=== PATIENT | female | born 1965 | race Two or more races ===

== ENCOUNTER 2020-11-14 17:45 | Outpatient (REF) | payer MEDICAID, OTHER, SELFPAY | END 2020-11-14 17:46 | disposition home or self-care (01) | LOC: HO.LAB 17:45 | PROVIDERS: PCP Emergency Medicine; Visit Provider Internal Medicine | DX: Z20.828 Contact with and (suspected) exposure to other viral communicable diseases (principal) | CPT/HCPCS: C9803; U0003 ==

== ENCOUNTER 2021-02-14 16:01 | Outpatient (REF) | payer MEDICARE, MEDICAID, SELFPAY ==
--- NOTE | ~2021-02-14 | XR_ITS ---
EXAMINATION: RIGHT KNEE AND RIGHT HAND. CLINICAL INFORMATION: Right knee pain, COMPARISON: None, TECHNIQUE: 3 views right hand and 4 views right knee, FINDINGS: Right Knee: There is mild reduction in medial and patellofemoral compartment joint space without any bony erosive changes or periarticular spurring. No loose bodies or joint effusion seen. Right Hand: There is minimal reduction in the PIP and DIP joint space. Minimal periarticular spur spurring seen at DIP joints 2nd digit. The MCP joints and the wrist joints are maintained normal. No soft tissue swelling. There is no osteopenia. XR/XR hand RT min 3V IMPRESSION: Minimal early degenerative changes in the patellofemoral and medial compartments. Similar findings are seen in the PIP and DIP joints right hand.
--- NOTE | ~2021-02-14 | XR_ITS ---
EXAMINATION: RIGHT KNEE AND RIGHT HAND. CLINICAL INFORMATION: Right knee pain, COMPARISON: None, TECHNIQUE: 3 views right hand and 4 views right knee, FINDINGS: Right Knee: There is mild reduction in medial and patellofemoral compartment joint space without any bony erosive changes or periarticular spurring. No loose bodies or joint effusion seen. Right Hand: There is minimal reduction in the PIP and DIP joint space. Minimal periarticular spur spurring seen at DIP joints 2nd digit. The MCP joints and the wrist joints are maintained normal. No soft tissue swelling. There is no osteopenia. XR/XR knee RT 4V IMPRESSION: Minimal early degenerative changes in the patellofemoral and medial compartments. Similar findings are seen in the PIP and DIP joints right hand.
== END 2021-02-14 16:02 | disposition home or self-care (01) ==
LOC: HO.XRAY 16:01
PROVIDERS: PCP General Practice; Visit Provider General Practice
DX: M25.561 Pain in right knee (principal); M79.641 Pain in right hand
CPT/HCPCS: 73130; 73564

== ENCOUNTER 2021-04-22 08:57 | Outpatient (REF) | payer MEDICARE, MEDICAID, SELFPAY ==
--- NOTE | ~2021-04-22 | MM_ITS ---
EXAMINATION: MM SCREENING DIGITAL BREAST TOMOSYNTHESIS, BILATERAL CLINICAL INFORMATION: Screening. Asymptomatic. The lifetime risk of breast cancer based on the Tyrer-Cuzick Model is 9.0%. COMPARISON: Mammography: February 20, 2020 and studies dating back to December 01, 2011 TECHNIQUE: Digital breast tomosynthesis is performed in both the craniocaudal and mediolateral oblique views along with computer-aided detection (CAD). Synthesized 2D images are generated from the tomosynthesis. FINDINGS: The breasts are heterogeneously dense, which may obscure small masses (ACR BI-RADS breast composition Category c). There are no new significant masses, abnormal calcifications, or other abnormalities. Stable circumscribed 4 mm densities seen about the anterior lateral aspect of the left breast. MM/MM tomosynthesis screening BI IMPRESSION: There are no significant changes from prior study. ASSESSMENT: BI-RADS 2: Benign RECOMMENDATION: Routine annual mammography screening. This patient's information was entered into a reminder system with a target due date for their next mammogram.
== END 2021-04-22 08:58 | disposition home or self-care (01) ==
LOC: HO.MAMMO 08:57
PROVIDERS: PCP General Practice; Visit Provider General Practice
DX: Z12.31 Encounter for screening mammogram for malignant neoplasm of breast (principal)
CPT/HCPCS: 77063; 77067

== ENCOUNTER 2021-05-29 11:22 | Outpatient (REF) | payer MEDICARE, MEDICAID, SELFPAY | END 2021-05-29 11:23 | disposition home or self-care (01) | LOC: HO.HOSX 11:22 | PROVIDERS: Visit Provider Orthopaedic Surgery | DX: Z13.89 Encounter for screening for other disorder (principal) ==

== ENCOUNTER 2021-06-22 09:17 | Outpatient (REF) | payer MEDICARE, MEDICAID, SELFPAY ==
--- NOTE | ~2021-06-22 | XR_ITS ---
EXAMINATION: BILATERAL AP KNEE. RIGHT KNEE. CLINICAL INFORMATION: Pain right knee. COMPARISON: None TECHNIQUE: AP bilateral knees standing. Right knee 2 views. FINDINGS: AP bilateral knee: There is mild loss of medial and patellofemoral compartment joint space both knees without any bony erosive changes. No loose bodies or soft tissue swelling seen. Right knee: The patellofemoral compartment joint space is normal. No bony erosive changes seen. The soft tissues are normal. No abnormal joint effusion seen. XR/XR knee standing BI IMPRESSION: Mild degenerative changes medial compartment both knees. No visible acute fracture or dislocation seen. Minimal suprapatellar joint effusion seen on the lateral view of the right knee.
--- NOTE | ~2021-06-22 | XR_ITS ---
EXAMINATION: BILATERAL AP KNEE. RIGHT KNEE. CLINICAL INFORMATION: Pain right knee. COMPARISON: None TECHNIQUE: AP bilateral knees standing. Right knee 2 views. FINDINGS: AP bilateral knee: There is mild loss of medial and patellofemoral compartment joint space both knees without any bony erosive changes. No loose bodies or soft tissue swelling seen. Right knee: The patellofemoral compartment joint space is normal. No bony erosive changes seen. The soft tissues are normal. No abnormal joint effusion seen. XR/XR knee RT 2V IMPRESSION: Mild degenerative changes medial compartment both knees. No visible acute fracture or dislocation seen. Minimal suprapatellar joint effusion seen on the lateral view of the right knee.
== END 2021-06-22 09:18 | disposition home or self-care (01) ==
LOC: HO.HOSX 09:17
PROVIDERS: Visit Provider Orthopaedic Surgery
DX: M17.0 Bilateral primary osteoarthritis of knee (principal)
CPT/HCPCS: 20610; 73560; 73565; 99202; 99212; J1100

== ENCOUNTER → 2021-08-11 15:46 | Outpatient (BNVA) | payer MEDICARE, MEDICAID, SELFPAY | PROVIDERS: PCP General Practice; Visit Provider Physician Assistant | DX: M17.11 Unilateral primary osteoarthritis, right knee (principal) | CPT/HCPCS: 99212 ==

== ENCOUNTER → 2022-04-24 15:01 | Outpatient (BNVA) | payer MEDICARE, OTHER, SELFPAY | PROVIDERS: PCP General Practice | DX: N20.0 Calculus of kidney (principal) | CPT/HCPCS: 99202 ==

== ENCOUNTER 2022-05-12 08:19 | Outpatient (REF) | payer MEDICARE, MEDICAID, SELFPAY ==
--- NOTE | ~2022-05-12 | MM_ITS ---
EXAMINATION: MM SCREENING DIGITAL BREAST TOMOSYNTHESIS, BILATERAL CLINICAL INFORMATION: Screening. Asymptomatic. The lifetime risk of breast cancer based on the Tyrer-Cuzick Model is 9%. COMPARISON: Mammography: 04/22/2021, 02/20/2020, 02/14/2019, 1718, 12/22/2016, 10/14/2015, 09/26/2013. TECHNIQUE: Digital breast tomosynthesis is performed in both the craniocaudal and mediolateral oblique views along with computer-aided detection (CAD). Synthesized 2D images are generated from the tomosynthesis. FINDINGS: There are scattered areas of fibroglandular density (ACR BI-RADS breast composition Category b). Left breast parenchymal pattern is similar to prior studies. Neither breast shows abnormal calcifications. The bilateral axilla and skin contours are unremarkable. There is subtle focal asymmetric density under 1 cm posterior central inner right breast versus summation artifact from shifting fibroglandular tissue. Patient will be recalled for additional imaging. MM/MM tomosynthesis screening BI IMPRESSION: Right: -Question of focal asymmetric density posterior central inner right breast. Left: -No mammographic evidence of malignancy. ASSESSMENT: BI-RADS 0: Incomplete - Need Additional Imaging Evaluation RECOMMENDATION: 1. Additional views of the right breast (rolled CC x2, spot MLO). 2. Targeted ultrasound if warranted after review of the additional views. 3. Radiology department staff will contact the patient for additional imaging. This patient's information was entered into a reminder system with a target due date for their next mammogram.
== END 2022-05-12 08:20 | disposition home or self-care (01) ==
LOC: HO.MAMMO 08:19
PROVIDERS: Visit Provider General Practice
DX: Z12.31 Encounter for screening mammogram for malignant neoplasm of breast (principal)
CPT/HCPCS: 77063; 77067

== ENCOUNTER 2022-05-16 13:58 | Outpatient (REF) | payer MEDICARE, MEDICAID, SELFPAY ==
--- NOTE | ~2022-05-16 | MM_ITS ---
EXAMINATION: MM DIAGNOSTIC DIGITAL BREAST TOMOSYNTHESIS, RIGHT US DIAGNOSTIC ULTRASOUND BREAST, RIGHT CLINICAL INFORMATION: Recall from screening for subtle focal asymmetric density posterior central inner right breast versus summation artifact from shifting fibroglandular tissue. TC score 9%. COMPARISON: Mammography: 05/12/2022, 04/22/2021, 04/21/2020 TECHNIQUE: Digital breast tomosynthesis is performed. 2D images are generated from the tomosynthesis. The following views are obtained: Rolled CC x2, spot MLO. Ultrasound right breast is targeted to the inner quadrants 2:00 through 5:00 position. Grayscale imaging and color Doppler are performed without and with harmonics. FINDINGS: There are scattered areas of fibroglandular density (ACR BI-RADS breast composition Category b). There are scattered fibroglandular densities. There is no significant mass or architectural abnormality or definite developing density. Ultrasound demonstrates no cystic or solid mass or focal architectural abnormality. No focal duct ectasia. No skin thickening or edema tracking in soft tissue planes. Results are discussed with the patient at time of visit. As a precaution, short interval six-month follow-up right mammography will be requested to exclude remote possibility of an occult developing density. MM/MM tomosynthesis added views R IMPRESSION: -Additional views show no significant mass or architectural abnormality. -Unremarkable right breast ultrasound. ASSESSMENT: BI-RADS 3: Probably Benign RECOMMENDATION: Diagnostic right mammography in 6 months. This patient's information was entered into a reminder system with a target due date for their next mammogram.
== END 2022-05-16 13:59 | disposition home or self-care (01) ==
LOC: HO.MAMMO 13:58
PROVIDERS: Visit Provider General Practice
DX: R92.2 Inconclusive mammogram (principal)
CPT/HCPCS: 76642; 77061; 77065

== ENCOUNTER → 2022-05-17 15:20 | Outpatient (BNVA) | payer MEDICARE, MEDICAID, SELFPAY | PROVIDERS: PCP General Practice; Visit Provider Physician Assistant | DX: M17.11 Unilateral primary osteoarthritis, right knee (principal) | CPT/HCPCS: 99212 ==

== ENCOUNTER 2022-06-27 16:14 | Outpatient (REF) | payer MEDICARE, MEDICAID, SELFPAY ==
--- NOTE | ~2022-06-27 | US_ITS ---
EXAMINATION: US RETROPERITONEAL LIMITED (RENAL ONLY) CLINICAL INFORMATION: Calculus of kidney. COMPARISON: Renal ultrasound 03/29/2017 and 06/06/2016. CT abdomen and pelvis 03/07/2015. TECHNIQUE: Real-time imaging of the kidneys. FINDINGS: RIGHT KIDNEY: 10.0 x 3.7 x 5.2 cm (SAG x AP x TRV). The kidney is normal in size, contour, and echogenicity. Renal cortical thickness is normal. No calculi or focal parenchymal lesions. No hydronephrosis. LEFT KIDNEY: 10.3 x 5.2 x 5.0 cm (SAG x AP x TRV). The kidney is normal in size, contour, and echogenicity. Renal cortical thickness is normal. There is a 6 mm stone in the midpole. No focal parenchymal lesions or hydronephrosis. US/US renal BI IMPRESSION: Left renal stone.
== END 2022-06-27 16:15 | disposition home or self-care (01) ==
LOC: HO.US 16:14
DX: N20.0 Calculus of kidney (principal)
CPT/HCPCS: 76775

== ENCOUNTER → 2022-07-02 14:21 | Outpatient (BNVA) | payer MEDICARE, MEDICAID, SELFPAY | PROVIDERS: PCP General Practice | DX: N20.0 Calculus of kidney (principal) | CPT/HCPCS: Q3014 ==

== ENCOUNTER 2022-07-17 16:05 | Outpatient (REF) | payer MEDICARE, MEDICAID, SELFPAY ==
[2022-07-18 18:24] LABS: CT PCR NOT DETECTED (Not Detect.); NG PCR NOT DETECTED (Not Detect.)
[2022-07-21 06:12] LABS: HPV mRNA E6/E7 rflx Not Detected (Not Detected)
== END 2022-07-17 16:06 | disposition home or self-care (01) ==
LOC: HO.LAB 16:05
PROVIDERS: Visit Provider Advanced Practice Midwife
DX: Z01.419 Encounter for gynecological examination (general) (routine) without abnormal findings (principal); Z11.51 Encounter for screening for human papillomavirus (HPV)
CPT/HCPCS: 87491; 87591; 87624; 88142

== ENCOUNTER 2022-08-03 16:48 | Outpatient (REF) | payer MEDICARE, SELFPAY ==
[2022-08-03 18:02] LABS: Syphilis Screen Nonreactive (Nonreactive)
[2022-08-06 07:50] LABS: HBc Num1 0.12 S/CO (0.00-0.79); HIV AB/AG Nonreactive (Nonreactive); HIV Num 1 0.06 S/CO (0.00-0.99); Hepatitis B Core Antibody Nonreactive (Nonreactive); ~Hepatitis C Antibody Nonreactive (Nonreactive)
== END 2022-08-03 16:49 | disposition home or self-care (01) ==
LOC: HO.LAB 16:48
PROVIDERS: PCP General Practice; Visit Provider Advanced Practice Midwife
DX: Z11.4 Encounter for screening for human immunodeficiency virus [HIV] (principal); Z20.2 Contact with and (suspected) exposure to infections with a predominantly sexual mode of transmission
CPT/HCPCS: 36415; 86704; 86780; 86803; 87389

== ENCOUNTER → 2022-08-21 14:58 | Outpatient (BNVA) | payer MEDICARE, SELFPAY | PROVIDERS: PCP General Practice; Visit Provider Physician Assistant | DX: M17.11 Unilateral primary osteoarthritis, right knee (principal) | CPT/HCPCS: 20610 ==

== ENCOUNTER 2022-12-25 14:54 | Outpatient (REF) | payer MEDICARE, SELFPAY ==
--- NOTE | ~2022-12-25 | MM_ITS ---
EXAMINATION: MM DIAGNOSTIC DIGITAL BREAST TOMOSYNTHESIS, RIGHT CLINICAL INFORMATION: Short interval six-month follow-up probable benign parenchymal asymmetries posterior central medial right breast. TC score 9%. COMPARISON: Mammography: 05/16/2022, 05/12/2022, 04/22/2021, 02/20/2020, 02/14/2019 (BI-RADS 0), 06/22/2021; ultrasound right breast 05/26/2022 TECHNIQUE: Digital breast tomosynthesis is performed in both the craniocaudal and mediolateral oblique views along with computer-aided detection (CAD). Synthesized 2D images are generated from the tomosynthesis. Additional right MLO view is provided. FINDINGS: There are scattered areas of fibroglandular density (ACR BI-RADS breast composition Category b). Scattered parenchymal asymmetries appears similar to prior exam. There is no developing density and no interval architectural abnormality. No abnormal calcifications. Right breast will be reassessed again at time of annual bilateral mammography, due in 6 months. Results are provided to the patient at time of visit by the technologist. MM/MM tomosynthesis diagnostic RT IMPRESSION: No significant changes from prior exam. ASSESSMENT: BI-RADS 3: Probably Benign RECOMMENDATION: Diagnostic mammography at time of annual bilateral mammography, due in 6 months. This patient's information was entered into a reminder system with a target due date for their next mammogram.
== END 2022-12-25 14:55 | disposition home or self-care (01) ==
LOC: HO.MAMMO 14:54
PROVIDERS: PCP General Practice; Visit Provider General Practice
DX: R92.2 Inconclusive mammogram (principal)
CPT/HCPCS: 77061; 77065

== ENCOUNTER 2023-08-14 08:13 | Outpatient (REF) | payer MEDICARE, SELFPAY ==
[2023-08-14 12:30] LABS: Alanine Aminotransferase 9 U/L (0-31); Albumin Level 4.3 g/dL (3.5-5.0); Alkaline Phosphatase 65 U/L (39-117); Anion Gap 11 (12-20); Aspartate Amino Transferase 16 U/L (5-31); Bilirubin Total 0.8 mg/dL (0.0-1.0); Blood Urea Nitrogen 11 mg/dL (9-16); Calcium 8.9 mg/dL (8.4-10.2); Carbon Dioxide 25 mmol/L (22-29); Chloride 109 mmol/L (96-108); Cholesterol 157 mg/dL (<200); Estimated Glomerular Filt Rate > 60; Glucose Random 95 mg/dL (60-115); HDL Cholesterol 43 mg/dL (>40); LDL Cholesterol Calculated 94 mg/dL (<100); Potassium 3.9 mmol/L (3.3-5.1); Sodium 141 mmol/L (135-145); Total Protein 7.2 g/dL (6.5-8.0); Triglycerides 102 mg/dL (<150)
[2023-08-14 12:53] LABS: TSH reflex Free T4 0.66 uIU/mL (0.32-4.0)
[2023-08-16 01:59] LABS: Prolactin 4.9 ng/mL
== END 2023-08-14 08:14 | disposition home or self-care (01) ==
LOC: HO.HHCL 08:13
PROVIDERS: Visit Provider General Practice
DX: Z00.00 Encounter for general adult medical examination without abnormal findings (principal); N95.0 Postmenopausal bleeding; N95.1 Menopausal and female climacteric states
CPT/HCPCS: 36415; 80053; 80061; 84146; 84443

== ENCOUNTER 2023-08-30 13:17 | Outpatient (REF) | payer OTHER, SELFPAY ==
--- NOTE | ~2023-08-30 | US_ITS ---
EXAMINATION: US PELVIS CLINICAL INFORMATION: Postmenopausal bleeding. COMPARISON: CT abdomen and pelvis 03/07/2015. TECHNIQUE: Ultrasound of the pelvis is performed using both transabdominal and transvaginal transducers along with Doppler. Transvaginal imaging is performed due to inadequate visualization transabdominally. FINDINGS: Uterus: The uterus is retroverted and measures 7.1 x 3.0 x 3.6 cm. The double wall endometrial thickness is 6 mm. The uterus is smooth in contour and has normal myometrial echogenicity. No visible fibroid. Adnexa: Neither ovary is seen. No pelvic free fluid. US/US pelvic and transvaginal IMPRESSION: The endometrial stripe measures 6 mm without discrete mass. In a bleeding postmenopausal patient, endometrial biopsy is recommended.
== END 2023-08-30 13:18 | disposition home or self-care (01) ==
LOC: HO.US 13:17
PROVIDERS: PCP General Practice; Visit Provider General Practice
DX: N95.0 Postmenopausal bleeding (principal)
CPT/HCPCS: 76830; 76856

== ENCOUNTER 2023-09-19 14:44 | Outpatient (REF) | payer OTHER, SELFPAY ==
--- NOTE | ~2023-09-19 | MM_ITS ---
EXAMINATION: MM DIAGNOSTIC DIGITAL BREAST TOMOSYNTHESIS, BILATERAL CLINICAL INFORMATION: 1 year Follow-up parenchymal asymmetries right breast medial aspect posterior one third seen on screening exam CC projection, and mid posterior right MLO screening exam projection. COMPARISON: Mammography: 12/25/2022, 05/16/2022, 05/12/2022, 03/23/2021. Screening breast ultrasound right 05/16/2022. TECHNIQUE: Digital breast tomosynthesis is performed in both the craniocaudal and mediolateral oblique views along with computer-aided detection (CAD). Synthesized 2D images are generated from the tomosynthesis. In addition, 3-D spot compression view in the left CC projection was obtained. FINDINGS: There are scattered areas of fibroglandular density (ACR BI-RADS breast composition Category b). There has been no significant interval change in the parenchymal asymmetries in the right breast which localizes posteromedially on the CC projection, and just inferior to the nipple line on the MLO projection, posterior one third. These have the appearance of overlapping tissue artifact/summation artifact. Previous diagnostic compression views and ultrasound demonstrated no persistent abnormalities. These are probably benign, and 1 year follow-up recommended when the patient is due for one year follow-up screening examination. Otherwise, There are no suspicious masses, suspicious grouped calcifications, or areas of architectural distortion in either breast. The parenchymal pattern is stable from prior exams. MM/MM tomosynthesis diagnostic BI IMPRESSION: There are no significant changes from prior study. Parenchymal asymmetries in the posterior RIGHT breast are stable over one year without change, and consistent with islands of normal glandular tissue. These will be evaluated again in one year on standard CC and MLO views. There is no findings suspicious for malignancy in either breast. ASSESSMENT: BI-RADS BI-RADS 3 - Probably benign finding(s) - 12 month follow-up suggested RECOMMENDATION: 12 month diagnostic follow up Results were provided to the patient at time of visit by the technologist. This patient's information was entered into a reminder system with a target due date for their next mammogram.
== END 2023-09-19 14:45 | disposition home or self-care (01) ==
LOC: HO.MAMMO 14:44
PROVIDERS: PCP General Practice; Visit Provider General Practice
DX: R92.2 Inconclusive mammogram (principal)
CPT/HCPCS: 77062; 77066

== ENCOUNTER → 2023-09-19 15:00 | Outpatient (BNV) | payer OTHER, SELFPAY | PROVIDERS: PCP General Practice; Visit Provider Radiology Diagnostic Radiology | DX: R92.323 Mammographic fibroglandular density, bilateral breasts (principal) | CPT/HCPCS: 77062; 77066 ==

== ENCOUNTER 2023-10-03 13:46 | Outpatient (AMB) | payer OTHER, SELFPAY ==
--- NOTE | 2023-10-03 13:52 | A.OFFVIS_ITS ---
Intake Intake Visit Reasons: OV - Right Knee Durolane Gel Inj Allergies No Known Allergies Allergy (Verified 09/25/23 13:27) pt states no food/medication a Allergy (Unknown, Uncoded 09/25/23 13:27) Unknown HPI OV - Right Knee Durolane Gel Inj HPI Details 58-year-old female, who is Croatian speak ing, presents in the office today for a follow up of right knee pain. The patient had her last durolane injection on 08/21/2022. [facility] Medical History Renal calculi Family History Mother Fatty liver Sister High cholesterol Maternal Grandfather Stroke Brother Psoriasis Social History (System 09/25/23 @ 13:27 by Suze Sanhcez) Household Members Other:: daughter Alcohol intake: never Patient Tobacco Use Status: Never used Tobacco Current occupational status: employed Current occupation: [employer] Sexual orientation: Straight/Heterosexual Gender identity: Female Review of Systems Const All systems reviewed & are unremarkable except as noted in HPI and below Physical Exam Const General: cooperative, healthy appearing and no acute distress Resp Effort & Inspection: normal respiratory effort and able to speak in complete sentences Cardio Rate: regular rate Peripheral pulses: Peripheral pulses 2+ throughout GI Palpation (GI): Soft to palpation Skin Lesions: no lesions Rashes: no rashes Extrem Other: Right knee normal to inspection. No ecchymosis, erythema or edema. Flexion and extension to end range. NVI. Office Procedures Joint Injection/Drain Joint Injection/Drain Primary Site: right knee Prep: site was prepped using aseptic technique, ethochloride spray was applied and injection warnings given Injected: in the joint (Durolane ) Approach Used: anterolateral Procedure: The patient tolerated the procedure well, but had some pain with the injection and there was some relief with the local anesthesia Coding 41209 - Large joint Procedure code (CPT) selection complete Results Reviewed Results Reviewed: 10/03/23 13:43 Hyaluronate Sodium, Stabilized [Durolane] 60 mg INTRAARTIC .STK-MED ONE Assessment & Plan Assessment & Plan (1) Osteoarthritis of right knee: Code(s): M17.11 - Unilateral primary osteoarthritis, right knee Qualifiers: Osteoarthritis type: unspecified Qualified Code(s): M17.11 - Unilateral primary osteoarthritis, right knee Plan Ms. Lucas is a 58-year-old female, who is Croatian speaking, presents in the of [facility] today for a follow up of right knee pain. The patient had her last durolane injection on 08/21/2022. The patient was offered a durolane injection in the right knee. The patient was explained the risk, benefits, and alternatives to receiving this injection. After receiving consent for the injection, the patient had the procedure done while in office today. The patient tolerated the procedure well with no complications. Follow up will be PRN, or sooner if needed. Patient Instructions: Scribed for Lynda Rose PA-C by Arely Eldridge medical doctor, on 10/03/2023 at 1:53 pm, EST. Coding Level of Care Code Procedure Only Diagnoses Osteoarthritis of right knee, unspecified osteoarthritis type M17.11 Osteoarthritis type: unspecified CPT Codes Coding - 25706 Large joint: 41350 - Large joint ([id number])
== END 2023-10-03 13:53 | disposition home or self-care (01) ==
PROVIDERS: PCP General Practice; Visit Provider Physician Assistant
DX: M17.11 Unilateral primary osteoarthritis, right knee (principal)
CPT/HCPCS: 20610

== ENCOUNTER → 2023-10-03 13:46 | Outpatient (BNVA) | payer OTHER, SELFPAY | PROVIDERS: PCP General Practice; Visit Provider Physician Assistant | DX: M17.11 Unilateral primary osteoarthritis, right knee (principal) | CPT/HCPCS: 20610; J7318 ==

== ENCOUNTER 2023-11-12 07:38 | Outpatient (AMB) | payer OTHER, SELFPAY ==
--- NOTE | 2023-11-12 07:44 | MHC.OFFVIS ---
Intake Vital Signs 11/12/23 07:46 Height 5 ft 3 in Weight 144 lb BMI 25.5 BP 110/72 Intake Visit Reasons: Postmenopausal Bleeding/DO not RS [facility] Required: Yes [facility] Language: Nurses Educator Name: Analy WILSON Information Interpreted: non-clinical & clinical Pitching Coach: Pitching Coach Present (Analy WILSON) Accompanied by: Self / Same As Patient Allergies No Known Allergies Allergy (Verified 11/12/23 07:47) pt states no food/medication a Allergy (Unknown, Uncoded 11/12/23 07:47) Unknown Post menopausal: Yes HPI HPI Comments History of Present Illness Details Presenting referred from her PCP regarding an episode of postmenopausal bleeding occurred in 08/24. Pelvic done in 08/30/23 showed endometrial stripe of 6 mm. Last co testing was in 07/23 was negative. Last mammogram was in 09/23 was BI-RADS 3 PFSH Medical History Renal calculi Surgical History Hx of tubal ligation H/O abdominoplasty Family History Mother Fatty liver Sister High cholesterol Maternal Grandfather Stroke Brother Psoriasis Social History Household Members Other:: daughter Housing Other:: daughter Alcohol intake: never Patient Tobacco Use Status: Never used Tobacco Current occupational status: employed Current occupation: [employer] handed Sexual orientation: Straight/Heterosexual Gender identity: Female Female Reproductive History Menstrual Menopause type: natural Total pregnancies: 5 Full term: 2 Number of Living Children: 2 Ab spontaneous: 3 Review of Systems Const All systems reviewed & are unremarkable except as noted in HPI and below Physical Exam General: Yes no CVA tenderness External Female Exam: normal external appearance and normal appearance of the urethra Speculum Exam - Vagina: normal appearance of the vagina, normal palpation, no lesions and no masses Speculum Exam - Cervix: normal appearance of the cervix, normal palpation, no lesions, no masses and nontender Bimanual exam- vagina & uterus: normal bimanual exam, normal palpation, uterine size normal, normal palpation, uterine shape normal, No Cervical tenderness present and non-tender Bimanual Exam- Adnexa, other: normal adnexae Back/Spine/Pelvis Back: no CVA tenderness Office Procedures Endometrial Biopsy Details: The patient was counseled regarding the indication and benefits of endometrial sampling to rule out endometrial pathology including not limited to endometrial hyperplasia or endometrial cancer and others; The alternatives (Either do nothing vs. hysteroscopy D&C) & the risks were discussed with the patient including but not limited: pain, uterine perforation, bleeding, infection, possible injury to bladder, bowel, ureter, possible need for blood transfusion with all its possible risks. The patient verbalized understanding all questions answered and signed consent. The patient was placed into the dorsal lithotomy position; a speculum was inserted in the vagina. Using aseptic technique for the procedure, the cervix was cleansed with Betadine. The anterior lip of the cervix was grasped with a single tooth tenaculum. The uterus was sounded to 7 cm with a 4 mm Pipelle was used. Tissues samples were obtained and placed in formalin, in a patient labeled container and sent to the pathology department. At the end of the procedure, there was minimal bleeding noted The patient tolerated the procedure well and was discharged in good condition with the following instructions: Nothing in the vagina until the bleeding stops. No sex until the bleeding stops, to call if any of the following occurs: fever (>100.4), flu-like symptoms, abdominal pain, heavy bleeding, four smelling vaginal discharge. The patient was instructed to schedule a Follow up appointment in 2 weeks to discuss pathology results of the biopsy and treatment options. This note was generated with a voice recognition program. Some errors may have been overlooked during the review of this note. Sometimes these errors may affect the content or meaning of a given sentence. [id number] Biopsy Assessment & Plan Assessment & Plan (1) Postmenopausal bleeding: Code(s): N95.0 - Postmenopausal bleeding Plan: Discussed with the patient the pelvic ultrasound findings, the endometrial stripe thickenss measured by ultrasound was more than 4mm. The negative predictive value, positive predictive value, Sensitivity, specificity of using ultrasound measurement of endometrial stripe to detecting endometrial pathology including hyperplasia , polyp or cancer were discussed with the patient. Recommended to the patient that the next step is an endometrial sampling via hysteroscopy D&C possible polypectomy versus endometrial biopsy to r/o endometrial pathology including hyperplasia or cancer. All the pros and cons risks and benefits of each approach were discussed with the patient, endometrial biopsy being less invasive, office procedure with less sensitivity and inability diagnose a polyp and removal versus hysteroscopy done under anesthesia more invasive more sensitive to endometrial cancer and possibility of diagnosing and endometrial polyp with the possibility of polypectomy. All questions were answered pt verbalized understanding and decided to proceed with endometrial biopsy. EMB done, see procedure note Orders: Orders AMB Endometrial Biopsy Today N95.0 - Postmenopausal bleeding Coding Level of Care Code New Pt Level 3 (65562) Procedure Only Diagnoses Postmenopausal bleeding N95.0 CPT Codes Endometrial Biopsy - CPT: 90739-Kkflrtnomio Biopsy ([id number])
[2023-11-12 07:46] VITALS: BP 110/72; BMI 25.5
== END 2023-11-12 08:10 | disposition home or self-care (01) ==
PROVIDERS: PCP General Practice; Visit Provider Obstetrics & Gynecology
DX: N95.0 Postmenopausal bleeding (principal)
CPT/HCPCS: 58100; 99203

== ENCOUNTER 2023-11-12 07:39 | Outpatient (REF) | payer OTHER, SELFPAY | END 2023-11-12 07:40 | disposition home or self-care (01) | LOC: HO.LNP 07:39 | PROVIDERS: PCP General Practice; Visit Provider Obstetrics & Gynecology | DX: N95.0 Postmenopausal bleeding (principal) | CPT/HCPCS: 58100; 88305 ==

== ENCOUNTER 2024-01-01 07:33 | Outpatient (AMB) | payer OTHER, SELFPAY ==
--- NOTE | 2024-01-01 07:34 | A.OFFVIS_ITS ---
Intake Vital Signs 01/01/24 07:36 Height 5 ft 3 in Weight 143 lb 4.807 oz BMI 25.4 BP 112/66 Intake Visit Reasons: EMB follow up Mold Release Worker Required: Yes Mold Release Worker Language: Building Performance Specialist Name: Analy WILSON Information Interpreted: non-clinical & clinical Accompanied by: Self / Same As Patient Allergies No Known Allergies Allergy (Verified 01/01/24 07:36) pt states no food/medication a Allergy (Unknown, Uncoded 01/01/24 07:36) Unknown Post menopausal: Yes HPI HPI Comments History of Present Illness Details The patient is presenting after endometrial biopsy. The patient has no complaints, no vaginal bleeding, no feverishness chills or abdominal pain. Endometrial biopsy pathology showed following: Endometrium, biopsy: Superficial strips of benign endometrium and small fragment of atrophic squamous epithelium; abundant blood; no atypia identified PFSH Medical History Renal calculi Surgical History Hx of tubal ligation H/O abdominoplasty Family History Mother Fatty liver Sister High cholesterol Maternal Grandfather Stroke Brother Psoriasis Social History Household Members Other:: daughter Housing Other:: daughter Alcohol intake: never Patient Tobacco Use Status: Never used Tobacco Current occupational status: employed Current occupation: [employer] handed Sexual orientation: Straight/Heterosexual Gender identity: Female Review of Systems Const All systems reviewed & are unremarkable except as noted in HPI and below Reports as per HPI and Reports no additional complaints GI Reports no additional complaints Reports no additional complaints Physical Exam Vital Signs: Last Vital Signs BP 112/66 01/01/24 07:36 BMI result Body Mass Index 25.4 Assessment & Plan Assessment & Plan (1) Postmenopausal bleeding: Code(s): N95.0 - Postmenopausal bleeding Plan: Discussed with the patient the results of the endometrial biopsy showing inactive endometrium. Discussed with the patient the sensitivity, specificity, positive and negative predictive value, of endometrial biopsy in detecting endometrial pathology including but not limited to endometrial hyperplasia, cancer and other pathology; instructed the patient to call in case is vaginal bleeding bleeding recurs, the next step will be to proceed with a diagnostic hysteroscopy/D&C for further endometrial sampling evaluation to rule out endometrial pathology. All questions answered and the patient verbalized understanding and agreed with the plan. Coding Level of Care Code Est Pt Level 3 (42244) Diagnoses Postmenopausal bleeding N95.0
[2024-01-01 07:36] VITALS: BP 112/66; BMI 25.4
== END 2024-01-01 07:46 | disposition home or self-care (01) ==
LOC: HO.HWS 07:33
PROVIDERS: PCP General Practice; Visit Provider Obstetrics & Gynecology
DX: N95.0 Postmenopausal bleeding (principal)
CPT/HCPCS: 99213

== ENCOUNTER → 2024-01-01 07:33 | Outpatient (BNVA) | payer OTHER, SELFPAY | PROVIDERS: PCP General Practice; Visit Provider Obstetrics & Gynecology ==

== ENCOUNTER 2024-10-01 15:37 | Outpatient (AMB) | payer OTHER, SELFPAY ==
--- NOTE | 2024-10-01 15:41 | A.OFFVIS_ITS ---
Vital Signs 10/01/24 15:43 Height 5 ft 3 in Weight 141 lb 4 oz BMI 25.0 Intake Visit Reasons: annual/DO NOT RS Sole Dyer Required: Yes Information Interpreted: non-clinical & clinical Life Enrichment Specialist: Life Enrichment Specialist Present Allergies No Known Allergies Allergy (Verified 01/01/24 07:36) pt states no food/medication a Allergy (Unknown, Uncoded 01/01/24 07:36) Unknown HPI Comments Details: Presenting for annual exam. No complaints. Last Pap/HPV was negative in 07/23 Last Mammogram was BI-RADS 3 in 09/23, the recommendation was to repeat in 12 month Last Colonoscopy was 7 years ago, the recommendation was to repeat in 10 years according to the patient [facility] Medical History Renal calculi Surgical History Hx of tubal ligation H/O abdominoplasty Family History Mother Fatty liver Sister High cholesterol Maternal Grandfather Stroke Brother Psoriasis Social History Household Members Other:: daughter Housing Other:: daughter Alcohol intake: never Patient Tobacco Use Status: Never used Tobacco Current occupational status: employed Current occupation: [employer] handed Sexual orientation: Straight/Heterosexual Gender identity: Female Female Reproductive History Menstrual Menopause type: natural Total pregnancies: 2 Full term: 2 Number of Living Children: 2 Date of last pap smear: 07/18/22 History of abnormal pap smear: No Date of Mammogram: 09/19/23 Review of Systems Const All systems reviewed & are unremarkable except as noted in HPI and below Card Reports as per HPI Resp Reports as per HPI GI Reports as per HPI and Reports no additional complaints Reports as per HPI Physical Exam Const General: cooperative, healthy appearing and comfortable Chest Chest palpation & inspection: normal inspection of the chest and normal palpation of entire chest wall Breast/axilla inspection: normal inspection of the breasts and normal inspection of the axillae Breast/axilla palpation: normal palpation of the breasts, normal palpation of the axillae and no axillary lymphadenopathy Resp Effort & Inspection: normal respiratory effort Auscultation: clear to auscultation bilaterally Percussion: percussion normal Cardio Palpation: normal PMI Rate: regular rate Rhythm: regular rhythm Heart sounds: no murmurs and no rubs Peripheral pulses: Peripheral pulses 2+ throughout GI Inspection: Yes normal to inspection Palpation (GI): Soft to palpation, nontender, no guarding, not rigid and No hepatosplenomegaly present Percussion: Yes normal to percussion Auscultation: normal bowel sounds Rectal Exam - Female: deferred General: Yes bladder normal to palpation External Female Exam: No lesion Speculum Exam - Vagina: normal appearance of the vagina, normal palpation, normal vaginal discharge and not erythematous Speculum Exam - Cervix: normal appearance of the cervix and normal palpation Bimanual exam- vagina & uterus: normal bimanual exam, normal palpation, uterine size normal, bladder normal to palpation, consistency normal and normal palpation Bimanual Exam- Adnexa, other: normal adnexae, no masses and no tenderness Assessment & Plan Assessment & Plan (1) Well woman exam: Code(s): Z01.419 - Encounter for gynecological examination (general) (routine) without abnormal findings Category: Medical Plan: Co testing done. Counseled the patient about the recommended dietary allowance of 1200 mg of Calcium & 600 IU of vitamin D. Mammogram scheduled in few weeks. The patient was instructed to perform monthly self-breast exams and schedule annual exam in a year. All questions answered and the patient verbalized understanding. Coding Level of Care Code Est Pt Prev Care 40-64y(96007) Diagnoses Well woman exam Z01.419
[2024-10-01 15:43] VITALS: BMI 25.0
== END 2024-10-01 16:05 | disposition home or self-care (01) ==
LOC: HO.HWS 15:37
PROVIDERS: PCP General Practice; Visit Provider Obstetrics & Gynecology
DX: Z01.419 Encounter for gynecological examination (general) (routine) without abnormal findings (principal)
CPT/HCPCS: 99396

== ENCOUNTER → 2024-10-01 15:37 | Outpatient (BNVA) | payer OTHER, SELFPAY | PROVIDERS: PCP General Practice; Visit Provider Obstetrics & Gynecology ==

== ENCOUNTER 2024-12-18 12:58 | Outpatient (REF) | payer OTHER, SELFPAY ==
--- NOTE | ~2024-12-18 | MM_ITS ---
EXAMINATION: MM DIAGNOSTIC DIGITAL BREAST TOMOSYNTHESIS, BILATERAL CLINICAL INFORMATION: Follow-up for right breast focal asymmetry without prior sonographic correlate. COMPARISON: Mammography: Comparison is made with relevant prior exams. TECHNIQUE: Digital breast mammography with tomosynthesis is performed in both the craniocaudal and mediolateral oblique views along with computer-aided detection (CAD). FINDINGS: There are scattered areas of fibroglandular density (ACR BI-RADS breast composition Category b). Left: There are no significant masses, abnormal calcifications, or other abnormalities. Right: The previously seen focal asymmetry in the central inner right breast posterior depth is not significantly changed on prior mammograms dating back for 2 years and therefore benign. No prior sonographic correlate was seen. No suspicious masses calcifications or other abnormal findings. Results are provided to the patient at time of visit by the technologist. MM/MM tomosynthesis diagnostic BI IMPRESSION: Left: Negative. Right: Benign. ASSESSMENT: BI-RADS BI-RADS 2 - Benign Findings RECOMMENDATION: 1 year F/U This patient's information was entered into a reminder system with a target due date for their next mammogram. Electronically signed by: Yumiko De La Rosa DO 12/18/2024 01:44 PM [facility] [place]
== END 2024-12-18 12:59 | disposition home or self-care (01) ==
LOC: HO.MAMMO 12:58
PROVIDERS: PCP General Practice; Visit Provider General Practice
DX: R92.2 Inconclusive mammogram (principal)
CPT/HCPCS: 77062; 77066

== ENCOUNTER → 2024-12-18 13:00 | Outpatient (BNV) | payer OTHER, SELFPAY | PROVIDERS: PCP General Practice; Visit Provider Internal Medicine | DX: N64.89 Other specified disorders of breast (principal) | CPT/HCPCS: 77062; 77066 ==

== ENCOUNTER 2025-01-25 14:10 | Outpatient (REF) | payer OTHER, SELFPAY ==
--- OUTSIDE RECORDS SUMMARY | 2025-01-25 16:18 | XMS_ITS | Encounter Summary ---
Author Organization [employer] Address [address] [place] [address] Care Team Providers Care Vending Machine Repairer Name Role Phone Orly Henry MD Primary Care Provider [phone] Reason for Visit * Reason Comments Annual Exam Encounter Details Date Type Department Care Team (Latest Contact Info) Description 01/25/2025 1:30 PM EST Office Visit [facility] [address], [place] [phone] Orly Henry MD [address] [place], [place] [phone] Localized osteoarthritis of right knee (Primary Dx); Dietary counseling; Exercise counseling; Overweight; Postmenopausal symptoms; Rash Social History Tobacco Use Types Packs/Day Years Used Date Smoking Tobacco: Never Smokeless Tobacco: Never Tobacco Cessation:Counseling Given: Not Answered Alcohol Use Standard Drinks/Week Comments Never 0 (1 standard drink = 0.6 oz pur e alcohol) Depression Answer Date Recorded Patient Health Questionnaire-9 Score 0 01/25/2025 Patient Health Questionnaire-9 Score 0 01/25/2025 Last PHQ-9: Questionnaire Data Not on file 0 01/25/2025 Housing Stability Answer Date Recorded What is your housing situation today? I have sebastian menendez 09/21/[address] you li ve. Do you have problems with any of the following? None of the above 09/21/2024 Food Insecurity Answer Date Recorded Within the past 12 months, y ou worried that your food would run out before you got money to buy more: Never True 09/21/2024 Within the past 12 months,th e food you bought just didn't last and you didn't have enough money to get more: Never True Transportation Answer Date Recorded In the past 12 months, has l ack of transportation kept you from medical appts, meetings, work or from getting things needed for daily living? No 09/21/2024 Utilities Answer Date Recorded In the past 12 months, has t he electric, gas, oil or water company threatened to shut off services in your home? No 09/21/2024 Depression Answer Date Recorded Patient Health Questionnaire-2 Score 0 01/25/2025 Internet Access Answer Date Recorded Internet Access Q1 Yes 09/21/2024 Internet Access Q2 Not on file 09/21/2024 Comments Unknown Sex and Gender Information Value Date Recorded Sex Assigned at Female 10/01/2022 10:16 AM EDT Legal Sex Female 10:16 AM EDT Gender Identity Female 10/01/2022 10:16 AM EDT Sexual Orientation Straight 10/01/2022 10 :16 AM EDT documented as of this encounter Last Filed Vital Signs Vital Sign Reading Time Taken Comments Blood Pressure 109/69 01/25/2025 1:41 PM EST Pulse 73 01/25/2025 1:41 PM EST Temperature 36.7 ??C (98 ??F) 01/25/2025 1:41 PM EST Respiratory Rate 17 01/25/2025 1:41 PM EST Oxygen Saturation 100% 01/25/2025 1:41 PM EST Inhaled Oxygen Concentration - - Weight 67.4 kg (148 lb 9.6 oz) 01/25/2025 1:41 P M EST Height 157.5 cm (5' 2 ) 01/25/2025 1:41 PM EST Body Mass Index 27.18 01/25/2025 1:41 PM EST documented in this encounter Progress Notes * Orly Henry MD - 01/25/2025 1:30 PM EST SUBJECTIVE: Roro Lucas is a 59 y.o. year old female who presents for chronic disease management/PE. Deniesrecent illness, ER visit, or hospitalization. Acute Concerns: Sun spots on her hands Chronic Conditions: (with A/P) Pain/swelling in hands secondary to OA Has gloves/splint at home for when this happens She had trigger finger in her L thumb last year, resolved with steroid injection. Received a repeatinjection and it was very helpful. OA R knee x 4 years got Synvisc injection last year, helpful but does not want to keep getting injection Would like to trial glucosamine/chondroitin, ordered today Menopause, occurred naturally at age 48: Had breakthrough bleeding on HRT (Combipatch, uterus intact), so stopped it after 5 years of use Looking for alternative remedies currently, will read about Black cohosh Also, interested in trying Paxil, script sent today Mammo- December 2024, Birads 1 Colonscopy- done in 2019, repeat 10 years Pap- 10/01/24 [facility] showed inactive endometrium [facility], appt in Nov 2022 Imms- declines Patient Active Problem List Diagnosis Hand pain Menopausal flushing Patellofemoral stress syndrome Localized osteoarthritis of right knee Annual physical exam Postmenopausal bleeding Postmenopausal symptoms Retained root of tooth after dental injury Hypercementosis Dental plaque Missing teeth, acquired History reviewed. No pertinent surgical history. No family history on file. Social History Social History Narrative Works at [employer] No tobacco/EtOH Review of Systems Constitutional: Negative. Respiratory: Negative. Cardiovascular: Negative. Gastrointestinal: Negative. Musculoskeletal: Positive for arthralgias. OBJECTIVE: Vitals: 01/25/25 1341 BP: 109/69 BP Location: Left arm Patient Position: Sitting BP Cuff Size: Adult Pulse: 73 Resp: 17 Temp: 98 ??F (36.7 ??C) TempSrc: Temporal SpO2: 100% Weight: 148 lb 9.6 oz (67.4 kg) Height: 5' 2 (1.575 m) Physical Exam Vitals and nursing note reviewed. Constitutional: Appearance: Normal appearance. HENT: Head: Normocephalic and atraumatic. Cardiovascular: Rate and Rhythm: Normal rate and regular rhythm. Pulses: Normal pulses. Heart sounds: Normal heart sounds. Pulmonary: Effort: Pulmonary effort is normal. Breath sounds: Normal breath sounds. Musculoskeletal: General: Tenderness present. Comments: R knee anterior tenderness Skin: General: Skin is warm and dry. Findings: Rash present. Comments: Scattered itchy hyperpigmented lesions on hands Neurological: General: No focal deficit present. Mental Status: She is alert and oriented to person, place, and time. Psychiatric: Mood and Affect: Mood normal. Behavior: Behavior normal. ASSESSMENT/PLAN Problem List Items Addressed This Visit Localized osteoarthritis of right knee - Primary Relevant Medications Glucosamine-Chondroitin 250-200 MG capsule calcium carbonate (Calcium 600) 600 MG tablet Postmenopausal symptoms Relevant Medications PARoxetine (Paxil) 10 MG tablet Other Visit Diagnoses Dietary counseling eat whole foods, mostly homemade Exercise counseling walk 20-30 minutes daily Overweight Relevant Orders Lipid Panel, Standard TSH W/Reflex to FT4 Comprehensive Metabolic Panel Hemoglobin A1c Rash Relevant Medications triamcinolone (Kenalog) 0.1 % cream Follow Up: 6-12 months or sooner prn No Known Allergies Current Outpatient Medications: calcium carbonate (Calcium 600) 600 MG tablet, Take 1 tablet (600 mg) by mouth Once per day., Disp:90 tablet, Rfl: 3 Glucosamine-Chondroitin 250-200 MG capsule, Take 1 tablet by mouth Once per day., Disp: 90 capsule,Rfl: 3 PARoxetine (Paxil) 10 MG tablet, Take 1 tablet (10 mg) by mouth in the evening., Disp: 30 tablet, Rfl: 11 triamcinolone (Kenalog) 0.1 % cream, Apply topically if needed at bedtime for rash., Disp: 45 g, Rfl: 2 Kittitian Translation: Patient is bilingual and declines translation services documented in this encounter Plan of Treatment Upcoming Encounters Date Type Department Care Team (Late st Contact Info) Description 02/12/2025 3:00 PM EDT Office Visit [facility] [address] [place] [address] Hoang Haywood, DMD [address] [place] [address] 07/30/2025 3:00 PM EDT Office Visit [facility] [address] [place] [address] Mary Byers [address] [place] [address] Scheduled Orders Name Type Priority Associated Diagnoses Orde r Schedule Lipid Panel, Standard Lab Routine Overweight Expected: 01/25/2025 (Approximate), Expires: 01/25/2026 TSH W/Reflex to FT4 Lab Routine Overweight Expected: 01/25/2025 (Approximate), Expires: 01/25/2026 Comprehensive Metabolic Panel Lab Routine Overweight Expected: 01/25/2025 (Approximate), Expires: 01/25/2026 Hemoglobin A1c Lab Routine Overweight Expected: 01/25/2025 (Approximate), Expires: 01/25/2026 documented as of this encounter Visit Diagnoses Diagnosis Localized osteoarthritis of right knee- Primary Dietary counseling Dietary surveillance and counseling Exercise counseling Overweight Postmenopausal symptoms Rash Rash and other nonspecific skin eruption documented in this encounter Additional Health Concerns Assessment Noted Time PHQ-9 Depression Total Score: 0 01/25/20 25 1:42 PM EST documented as of this encounter Care Teams Vending Machine Repairer Relationship Specialty Start Date End Date Orly Henry MD [address] [place] [address] PCP - General Family Medicine 11/10/20 documented as of this encounter
--- OUTSIDE RECORDS SUMMARY | 2025-01-25 16:18 | XMS_ITS | Encounter Summary ---
Author Organization [employer] Address [address] [place] [address] Care Team Providers Care Magnetic Tape Winder Name Role Phone Orly Henry MD Primary Care Provider [phone] Reason for Visit * Reason Onset Date Comments rs appt 09/17/2023 Encounter Details Date Type Department Care Team ([facility] st Contact Info) Description 09/17/[address] [facility] [address] [place] [address] Hoang Haywood, ZENA [address] [place] [address] rs appt Social History Tobacco Use Types Packs/Day Years Used Date Smoking Tobacco: Never Smokeless Tobacco: Never Alcohol Use Standard Drinks/Week Comments Never 0 (1 standard drink = 0.6 oz pur e alcohol) Depression Answer Date Recorded Patient Health Questionnaire-9 Score 0 08/12/2023 Housing Stability Answer Date Recorded What is your housing situation today? I have sebastian menendez 09/17/[address] you li ve. Do you have problems with any of the following? None of the above 09/17/2023 Food Insecurity Answer Date Recorded Within the past 12 months, y ou worried that your food would run out before you got money to buy more: Never True 09/17/2023 Within the past 12 months,th e food you bought just didn't last and you didn't have enough money to get more: Never True Transportation Answer Date Recorded In the past 12 months, has l ack of transportation kept you from medical appts, meetings, work or from getting things needed for daily living? No 09/17/2023 Utilities Answer Date Recorded In the past 12 months, has t he electric, gas, oil or water company threatened to shut off services in your home? No 09/17/2023 Depression Answer Date Recorded Patient Health Questionnaire-2 Score 0 08/12/2023 Comments Unknown Sex and Gender Information Value Date Recorded Sex Assigned at Female 10/01/2022 10:16 AM EDT Legal Sex Female 10:16 AM EDT Gender Identity Female 10/01/2022 10:16 AM EDT Sexual Orientation Straight 10/01/2022 10 :16 AM EDT documented as of this encounter Miscellaneous Notes * Telephone Encounter - Sheryl Rondon - 09/17/2023 1:05 PM EDT Patient cancelled appt for 09/18 an needs new date. Dental department closed from 1-2 and unable tocontact to reschedule new appt. Pls reach out to patient for rescheduling DR documented in this encounter Plan of Treatment Upcoming Encounters Date Type Department Care Team (Late st Contact Info) Description 02/12/2025 3:00 PM EDT Office Visit [facility] [address] [place] [address] Hoang Haywood, ZENA [address] [place] [address] 07/30/2025 3:00 PM EDT Office Visit [facility] [address] [place] [address] Zeeshan, Mary [address] [place] [address] documented as of this encounter Visit Diagnoses Not on filedocumented in this encounter Additional Health Concerns Assessment Noted Time PHQ-9 Depression Total Score: 0 08/12/20 23 1:18 PM EDT documented as of this encounter Care Teams Magnetic Tape Winder Relationship Specialty Start Date End Date Orly Henry MD [address] [place] [address] PCP - General Family Medicine 11/10/20 documented as of this encounter
--- OUTSIDE RECORDS SUMMARY | 2025-01-25 16:18 | XMS_ITS | Clinical Summary ---
Author Organization [employer] Address [address] [facility] 7t [place] [address] Care Team Providers Care Sergeant Missile Crewman Name Role Phone Orly Henry MD Primary Care Provider Allergies No known active allergies Medications PARoxetine (Paxil) 10 MG tabletIndications :Postmenopausal symptoms Take 1 tablet (10 mg) by mouth in the evening. 30 tablet 11 025 2025 Active Glucosamine-Chond roitin 250-200 MG capsuleIndication s:Localized osteoarthritis of right knee Take 1 tablet by mouth Once per day. 90 capsule 3 025 Active calcium carbonate (Calcium 600) 600 MG tabletIndications :Localized osteoarthritis of right knee Take 1 tablet (600 mg) by mouth Once per day. 90 tablet 3 025 2025 Active triamcinolone (Kenalog) 0.1 % creamIndications: Rash Apply topically if needed at bedtime for rash. 45 g 2 025 Active Sodium Fluoride 1.1 % gel brush on teeth two times a day ( am and before bedtime) 020 2024 Discontinued(T herapy completed) celecoxib (CeleBREX) 200 MG capsule Take 1 capsule by mouth every 12 (twelve) hours. 2024 Discontinued(T herapy completed) chlorhexidine (Peridex) 0.12 % solution Place 15 mL into mouth between cheek and gum every 12 (twelve) hours. 022 2024 Discontinued Diclofenac Sodium 1 % gel Apply 1 g topically every 12 (twelve) hours. 021 2024 Discontinued(T herapy completed) ibuprofen 600 MG tablet Take 1 tablet by mouth every 8 (eight) hours. 022 2024 Discontinued(T herapy completed) Calcium Carb-Cholecalcife rol 600-10 MG-MCG tablet TAKE 1 TABLET BY MOUTH EVERY DAY 90 tablet 3 023 2024 Discontinued(D ose adjustment) EPINEPHrine (Epipen) 0.3 MG/0.3ML injection syringe Inject 0.3 mL (0.3 mg) as directed 1 (one) time if needed for anaphylaxis for up to 1 dose. Inject into upper leg. Call 911 after use. 1 each 1 024 2024 Discontinued(T herapy completed) acetaminophen (Tylenol) 500 MG tablet Take 1 tablet (500 mg) by mouth every 6 (six) hours if needed for mild pain for up to 20 doses. 20 tablet 024 2024 Discontinued(T herapy completed) ibuprofen 600 MG tablet Take 1 tablet (600 mg) by mouth every 6 (six) hours if needed for mild pain for up to 20 doses. 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 The etiology of the bleeding could be related to the patch itself, but structural/hormonal/cancerous causes must be investigated as well To stop the patch, TSH and prolactin ordered, pelvic US to evaluate uterine structure and endometrial lining - has mammo scheduled Sep 2023 Pap 2022 NILM/HPV neg Postmenopausal symptoms 08/14/2023 Assessment & Plan (08/14/2023 9:30 AM EDT): Symptoms managed with Combipatch, now reporting breakthrough bleeding Hand pain 08/12/2023 Menopausal flushing 08/12/2023 Patellofemoral stress syndrome 08/12/2023 Encounters Date Type Department Care Team Description 01/25/2025 1:30 PM EST Office Visit [facility] MEDICINE [address] [place] [address] Orly Henry MD Localized osteoarthritis of right knee (Primary Dx); Dietary counseling; Exercise counseling; Overweight; Postmenopausal symptoms; Rash 01/25/2025 Travel 01/22/2025 3:00 PM EST Office Visit [facility] ADULT DENTAL [address] [place] [address] Mary Byers Dental plaque (Primary Dx) 01/11/2025 Patient Outreach [facility] MEDICINE [address] [place] [address] Orly Henry MD Pre-visit Planning ((Unable to reach for PVP screening, LVM)) 12/18/2024 Orders Only [facility] MEDICINE [address] [place] [address] Orly Henry MD 11/24/2024 Patient Outreach [address] [address] Orly Henry MD Pre-visit Planning (SDOH screening completed on 09/24/2024) from Last 3 Months Immunizations Name Administration Dates Next Due Influenza injectable quadriv alent IIV4 with preservative 09/03/2018,12/11/2017,10/14/2015 Influenza injectable quadriv alent preservative free 08/27/2022,11/22/2021,08/12/2020 Influenza, IIV3, injectable 08/16/2014 Influenza, Split (incl. alissa fied surface antigen) 09/04/2013 Pfizer Covid-19 Vaccine 12+ 12/05/2021,,03/30/2021 Tdap 10/14/2015 Zoster, Recombinant 01/18/2021,11/08/2020 Social History Tobacco Use Types Packs/Day Years [...] Orientation Straight 10/01/2022 10 :16 AM EDT Last Filed Vital Signs Vital Sign Reading [...] Mass Index 27.18 01/25/2025 1:41 PM EST Plan of Treatment Upcoming Encounters Date Type Department Care Team (Late st Contact Info) Description 02/12/2025 3:00 PM EDT Office Visit [facility] ADULT DENTAL [address] [place] [address] ChastityHoang, ZENA [address] [place] [address] 07/30/2025 3:00 PM EDT Office Visit [facility] ADULT DENTAL [address] [place] [address] Mary Byers [address] [place] [address] Health Maintenance Due Date Last Done Comments CT Colonography 1967 FIT DNA/Cologuard 1967 FIT 1967 FOBT 1967 Sigmoidoscopy 1967 Alcohol/Substance Use Screening 1979 Hepatitis B Vaccines (1 of 3 - 19+ 3-dose series) 1986 Pneumococcal Vaccine: 50+ Years (1 of 1 - PCV) 2017 Pap Smear 03/13/2024 03/13/2021 COVID-19 Vaccine ( season) 2024 12/05/2021, 04/20/2021, 03/30/2021 Influenza Vaccine (#1) 2024 , 11/22/2021, 08/12/2020, Additional history exists Dental Oral Exam 07/23/2025 01/22/2025, , 07/14/2024 Dental Prophylaxis 07/23/2025 01/22/2025, 07/14/2024 SDOH Screening 09/21/2025 09/21/2024 DTaP/Tdap/Td Vaccines (2 - Td or Tdap) 10/14/2025 10/14/2015 Mammogram 12/18/2025 12/18/2024, 09/01, 12/25/2022, Additional history exists Dental X-Ray: Bitewings 01/23/2026 01/22/20, 07/14/2024, 08/23/2022 Depression Screening 01/25/2026 01/25/2025, 01/25/20 Tobacco Screening 01/25/2026 01/25/2025 Dental X-Ray: Full Mouth 07/15/2027 07/14/2024, 07/08/2019 Cervical Cancer Screening 07/17/2027 HPV/Cotest 07/17/2027 07/17/2022, 07/02, 03/13/2021 Colonoscopy 11/04/2028 11/04/2018 Colorectal Cancer Screening 11/04/2028 RSV Patients and Patients Aged 60 years or older (1 - 1-dose 75+ series) 2042 Zoster Vaccines Completed 01/18/2021, 11/08/2020 HIV Screening Completed 08/03/2022 Hepatitis C Screening Completed 08/03/2022 HIB Vaccines Aged Out No longer eligi ble based on patient's age to complete this topic HPV Vaccines Aged Out No longer eligi ble based on patient's age to complete this topic Hepatitis A Vaccines Aged Out No long er eligible based on patient's age to complete this topic IPV Vaccines Aged Out No longer eligi ble based on patient's age to complete this topic Meningococcal Vaccine Aged Out No lenka alvaro eligible based on patient's age to complete this topic RSV under 20 months Aged Out No longe r eligible based on patient's age to complete this topic Rotavirus Vaccines Aged Out No longer eligible based on patient's age to complete this topic Procedures Procedure Name Priority Date/Time Associated Diagnosis Comments PERIODIC ORAL EVALUATION - ESTABLISHED PATIENT Routine 01/22/2025 3:00 PM EST INTRAORAL - PERIAPICAL EACH ADDITIONAL RADIOGRAPHIC IMAGE Routine 01/22/2025 3:00 PM EST Dental plaque INTRAORAL - PERIAPICAL EACH ADDITIONAL RADIOGRAPHIC IMAGE Routine 01/22/2025 3:00 PM EST Dental plaque BITEWINGS - 4 RADIOGRAPHIC IMAGES Routine 01/22/2025 3:00 PM EST Dental plaque INTRAORAL - PERIAPICAL FIRST RADIOGRAPHIC IMAGE Routine 01/22/2025 3:00 PM EST Dental plaque ORAL HYGIENE INSTRUCTIONS Routine 01/22/2025 3:00 PM EST Dental plaque CASE PRESENTATION, DETAILED AND EXTENSIVE TREATMENT PLANNING Routine 01/22/2025 3:00 PM EST Dental plaque PROPHYLAXIS - ADULT Routine 01/22/2025 3 :00 PM EST Dental plaque BI MAMMOGRAM DIAGNOSTIC TOMOSYNTHESIS BILATERAL Routine 12/18/2024 1:05 PM EST INTRAORAL - COMPLETE SERIES OF RADIOGRAPHIC IMAGES Routine 07/14/2024 3:00 PM EDT Dental plaque ZZZ HISTORICAL HEPATITIS C ANTIBODY Routine 08/03/2022 4:56 PM EDT ZZZ HISTORICAL HPV E6/E7 RFLX PHILIPP 16 18/45 Routine 07/17/2022 4:05 PM EDT THINPREP PAP Routine 03/13/2021 3:49 PM EDT HM COLONOSCOPY Routine 11/04/2018 from Last 3 Months or Most Recently Relevant to Health Maintenance Results * BI Mammogram Diagnostic Tomosynthesis Bilateral (12/18/2024 1:05 PM EST) Anatomical Region Laterality Modality Breast Bilateral Mammography 12/18/2024 1:05 PM EST Narrative 12/18/2024 1:47 PM EST ? [facility] [place] ? [address] ?[place] [address] ? Mammography Report ? Signed ? Patient: Lucas,Roro N ?MR#: [id number] ?? [id number] ? : 1965 ?Acct:[id number] ? Age/Sex: 59 / F ?ADM Date: 01/17/25 ? Loc: HO.MAMMO ? Attending Josue Henry MD ? Ordering Physician: Orly Henry ?Results: 2Benign F ?? indings ? Date of Service: 12/18/24 ?Follow Up: 1 Year From Orig ?? inal Mammogram ? Procedure(s): MM tomosynthesis diagnostic BI ?? Accession Number(s): [id number] ? cc: Orly Henry ? EXAMINATION: ?? MM DIAGNOSTIC DIGITAL BREAST TOMOSYNTHESIS, BILATERAL ? CLINICAL INFORMATION: ? Follow-up for right breast focal asymmetry without prior sonographic ?? correlate. ? COMPARISON: ?? Mammography: Comparison is made with relevant prior exams. ? TECHNIQUE: ?? Digital breast mammography with tomosynthesis is performed in both the ?? craniocaudal and mediolateral oblique views along with computer-aided ?? detection (CAD). ? FINDINGS: ?? There are scattered areas of fibroglandular density (ACR BI-RADS breast ?? composition Category b). ?? Left: ?? There are no significant masses, abnormal calcifications, or other ?? abnormalities. ? Right: ?? The previously seen focal asymmetry in the central inner right breast ?? posterior depth is not significantly changed on prior mammograms dating ?? back for 2 years and therefore benign. No prior sonographic correlate ?? was seen. ?? No suspicious masses calcifications or other abnormal findings. ? Results are provided to the patient at time of visit by the ?? technologist. ? MM/MM tomosynthesis diagnostic BI ?? IMPRESSION: ?? Left: Negative. ?? Right: Benign. ? ASSESSMENT: ? BI-RADS BI-RADS 2 - Benign Findings ? RECOMMENDATION: ?? 1 year F/U ? This patient's information was entered into a reminder system with a ?? target due date for their next mammogram. ? Electronically signed by: ??Yumiko De La Rosa DO ??12/18/2024 01:44 PM EST ?? RP ? Dictated By: ?Yumiko De La Rosa DO ? Signed By: ?<Electronically signed by Yumiko De La Rosa, DO in OV> ? 12/18/24 1344 ? DD/ 1305 ? TD/TT: 12/18/24 1322 ? Information Security Risk Analyst: ? Procedure Note Donotuseinterpreter, Image - [facility]/18/20[facility] [address] [place] [address] Mammography Report Signed Patient: Roro Lucas [facility]#: [id number] : 1965Acct:[id number] Age/Sex: 59 / FADM Date: 12/18/24 Loc: HO.MAMMO Attending Dr: Orly Henry MD Ordering Physician: Patricia Henryults: 2Bmax F indings Date of Service: 12/18/24Follow Up: 1 Year From Orig inal Mammogram Procedure(s): MM tomosynthesis diagnostic BI Accession Number(s): [id number] cc: Orly Henry EXAMINATION: MM DIAGNOSTIC DIGITAL BREAST TOMOSYNTHESIS, BILATERAL CLINICAL INFORMATION: Follow-up for right breast focal asymmetry without prior sonographic correlate. COMPARISON: Mammography: Comparison is made with relevant prior exams. TECHNIQUE: Digital breast mammography with tomosynthesis is performed in both the craniocaudal and mediolateral oblique views along with computer-aided detection (CAD). FINDINGS: There are scattered areas of fibroglandular density (ACR BI-RADS breast composition Category b). Left: There are no significant masses, abnormal calcifications, or other abnormalities. Right: The previously seen focal asymmetry in the central inner right breast posterior depth is not significantly changed on prior mammograms dating back for 2 years and therefore benign. No prior sonographic correlate was seen. No suspicious masses calcifications or other abnormal findings. Results are provided to the patient at time of visit by the technologist. MM/MM tomosynthesis diagnostic BI IMPRESSION: Left: Negative. Right: Benign. ASSESSMENT: BI-RADS BI-RADS 2 - Benign Findings RECOMMENDATION: 1 year F/U This patient's information was entered into a reminder system with a target due date for their next mammogram. Electronically signed by: Yumiko De La Rosa DO 12/18/2024 01:44 PM EST RP Dictated By: Yumiko De La Rosa DO Signed By: <Electronically signed by Yumiko De La Rosa DO in OV> 12/18/24 1344 DD/ 1305 TD/TT: 12/18/24 1322 Information Security Risk Analyst: Orly Henry MD IMG BI PROCEDURES Edited Resul t - Final * Hepatitis C Antibody (08/03/2022 4:56 PM EDT) Pathologist [facility] Hepatitis C Antibody Nonreactive Nonreactive [facility] Comment: Antibodies to HCV not detected; does not exclude early acute HCV infection. Hepatitis B Core Antibody Nonreactive Nonreactive [facility] HIV AB/AG Nonreactive Nonreactive [facility] Comment: HIV-1 p24 Ag and/or HIV-1/HIV-2 Ab not detected. ?? A test result that is nonreactive does not exclude the possibility of exposure to or infection with HIV-1 and/or HIV-2. Nonreactive results in this assay for individuals with prior exposure to HIV-1 and/or HIV-2 may be due to antigen and antibody levels that are below the limit of detection of this assay. ?? The Paige Sausage Cutter HIV Ag/Ab Combo assay result and supplemental assay results should be interpreted in conjunction with the patient's clinical presentation, history and other laboratory results. ??If the results are inconsistent with clinical evidence, additional testing is suggested to confirm the result. 08/03/2022 4:56 PM EDT us Ana María Ferguson HISTORICAL/NON ORDERABLE LABS Fi nal Result [facility] [address] * HPV E6/E7 RFLX PHILIPP 16 18/45 (07/17/2022 4:05 PM EDT) Pathologist [facility] HPV 16 RNA TNP [facility] HPV 18/45 RNA TNP [facility] HPV E6 E7 ADD TNP [facility] HPV mRNA E6/E7 rflx Not Detected Not Detected [facility] Comment: Methodology: Collar Tacker-Mediated Amplification This assay detects E6/E7 viral messenger RNA (mRNA) from 14 high-risk HPV types (16,18,31,33,35,39,45,51,52,56,58,59,66,68). Cervical sources are required for HPV testing. If a vaginal source from a patient who has had a total hysterectomy with removal of cervix was submitted, please contact the testing laboratory for alternative testing options. For additional information, please refer to http://education.ReDigi/faq/BJP971l8 (This link if provided for information/ educational purposes only.) THIS TEST WAS PERFORMED AT: [facility] [address] [place] [address],[address] [place], [place] ??[phone] CHRISTINE ALVARADO MD 07/17/2022 4:05 PM EDT us Ana María Ferguson HISTORICAL/NON ORDERABLE LABS Fi nal Result [facility] [address] * (ABNORMAL) THINPREP PAP (03/13/2021 3:49 PM EDT) Clinical Information: NONE GIVEN [facility] COMMENT SEE COMMENT [facility] Comment: EXPLANATORY NOTE: ? The Pap is a screening test for cervical cancer. It is ?? not a diagnostic test and is subject to false negative ?? and false positive results. It is most reliable when a ?? satisfactory sample, regularly obtained, is submitted ?? with relevant clinical findings and history, and when ?? the Pap result is evaluated along with historic and ?? current clinical information. ?? Customer Sales Specialist : SEE COMMENT [facility] Comment: GSG, CT(ASCP) CT screening location: [address] ??[id number] General Categorization: EPITHELIAL CELL ABNORMALITY(A) [facility] Interpretation/R esult: Atypical Squamous Cells of Undetermined Significance (ASC-US)(A) [facility] LMP: NONE GIVEN [facility] PATHOLOGIST: SEE COMMENT [facility] Comment: Vira Rai M.D., Board Certified in Anatomic and Clinical Pathology (electronic signature) Consulting Pathologist [facility] [phone] Prev. BX: NONE GIVEN [facility] Prev. PAP: NONE GIVEN [facility] SOURCE: NONE [facility]IVEN [facility] Statement Of Adequacy: SEE COMMENT [facility] Comment: Satisfactory for evaluation. Endocervical/transformation zone component absent. 03/13/2021 3:49 PM EDT Orly Henry MD LAB PATHOLOGY ORDERABLES Final Result [facility] [address] * Colonoscopy (11/04/2018) Historical Provider HEALTH MAINTENANCE Final Result from Last 3 Months or Most Recently Relevant to Health Maintenance Insurance [facility] NAVIGATE DENTAL - HSN PARTIAL (MEDICAID) Care Teams Sergeant Missile Crewman Relationship Specialty Start Date End Date Orly Henry MD [address] [place] [phone] PCP - General Family Medicine 11/10/20
--- OUTSIDE RECORDS SUMMARY | 2025-01-25 16:18 | XMS_ITS | Encounter Summary ---
Author Organization [employer] [facility] Address [address] [place] [address] 7t [place] [address] Care Team Providers Care Lumber Straightened Name Role Phone Orly Henry MD Primary Care Provider [phone] Encounter Details Date Type Department Care Team (Latest Contact Info) Description 08/16/2022 Abstract [facility] CONVERSIONS Dental, Provider, DDS Social History Tobacco Use Types Packs/Day Years Used Date Smoking Tobacco: Never Assessed Comments Unknown Sex and Gender Information Value Date Recorded Sex Assigned at Female 10/01/2022 10:16 AM EDT Legal Sex Female 10:16 AM EDT Gender Identity Female 10/01/2022 10:16 AM EDT Sexual Orientation Straight 10/01/2022 10 :16 AM EDT documented as of this encounter Plan of Treatment Upcoming Encounters Date Type Department Care Team ( Contact Info) Description 02/12/2025 3:00 PM EDT Office Visit [facility] ADULT DENTAL [address] [place] [address] Hoang Haywood DMD [address] [place] [address] 07/30/2025 3:00 PM EDT Office Visit [facility] ADULT DENTAL [address] [place] [address] Mary Byers [address] [place] [address] documented as of this encounter Visit Diagnoses Not on filedocumented in this encounter Care Teams Lumber Straightened Relationship Specialty Start Date End Date Orly Henry MD [address] [place] [address] PCP - General Family Medicine 11/10/20 documented as of this encounter
--- OUTSIDE RECORDS SUMMARY | 2025-01-25 16:18 | XMS_ITS | Encounter Summary ---
Author Organization [employer] Address [address] [facility] 7t [place] [address] Care Team Providers Care Teachers Aide Name Role Phone Orly Henry MD Primary Care Provider [phone] Reason for Visit * Reason Comments Pre-visit Planning (Unable to reach for PVP screening, LVM) Encounter Details Date Type Department Care Team ([facility] Contact Info) Description 01/11/2025 Patient Outreach [facility] MEDICINE [address] [place] [address] Orly Henry MD [address] [place] [address] Pre-visit Planning ((Unable to reach for PVP screening, LVM)) Social History Tobacco Use Types Packs/Day Years Used Date Smoking Tobacco: Never Smokeless Tobacco: Never Alcohol Use Standard Drinks/Week Comments Never 0 (1 standard drink = 0.6 oz pur e alcohol) Depression Answer Date Recorded Patient Health Questionnaire-9 Score 0 08/12/2023 Housing Stability Answer Date Recorded What is your housing situation today? I have sebastianramiro menendez 09/21/[address] you [...] Recorded Patient Health Questionnaire-2 Score 0 08/12/2023 Internet Access Answer Date Recorded Internet Access Q1 Yes 09/21/2024 Internet Access Q2 Not on file 09/21/2024 Comments Unknown Sex and Gender Information Value Date Recorded Sex Assigned at Female 10/01/2022 10:16 AM EDT Legal Sex Female 10:16 AM EDT Gender Identity Female 10/01/2022 10:16 AM EDT Sexual Orientation Straight 10/01/2022 10 :16 AM EDT documented as of this encounter Progress Notes * Sabina Torres - 01/11/2025 9:09 AM EST CC Sabina. Placed outbound call to patient to complete pre-visit planning. No answer at this time. Patient name and were not confirmed. CC left voicemail requesting return call. Direct contact information provided. documented in this encounter Plan of Treatment Upcoming Encounters Date Type Department Care Team (Late st Contact Info) Description 02/12/2025 3:00 PM EDT Office Visit [facility] ADULT DENTAL [address] [place] [address] Hoang Haywood, DMD [address] [place] [address] 07/30/2025 3:00 PM EDT Office Visit [facility] ADULT DENTAL [address] [place] [address] Mary Byers [address] [place] [address] documented as of this encounter Visit Diagnoses Not on filedocumented in this encounter Additional Health Concerns Assessment Noted Time PHQ-9 Depression Total Score: 0 08/12/20 23 1:18 PM EDT documented as of this encounter Care Teams Teachers Aide Relationship Specialty Start Date End Date Orly Henry MD [address] [place] [address] PCP - General Family Medicine 11/10/20 documented as of this encounter
--- OUTSIDE RECORDS SUMMARY | 2025-01-25 16:18 | XMS_ITS | Encounter Summary ---
Author Organization [employer] Address [address] [facility] [address] 7[address] [place] [address] Care Team Providers Care Corn Sheller Operator Name Role Phone Orly Henry MD Primary Care Provider [phone] Encounter Details Date Type Department Care Team (Latest Contact Info) Description 01/25/2025 Travel Social History Tobacco Use Types Packs/Day Years [...] Description 02/12/2025 3:00 PM EDT Office Visit [facility] ADULT DENTAL [address] [place] [address] Hoang Haywood DMD [address] [place] [address] 07/30/2025 3:00 PM EDT Office Visit [facility] ADULT DENTAL [address] [place] [address] Mary Byers [address] [place] [address] documented as of this encounter Visit Diagnoses Not on filedocumented in this encounter Additional Health Concerns Assessment Noted Time PHQ-9 Depression Total Score: 0 01/25/20 25 1:42 PM EST documented as of this encounter Care Teams Corn Sheller Operator Relationship Specialty Start Date End Date Orly Henry MD [address] [place] [address] PCP - General Family Medicine 11/10/20 documented as of this encounter
--- OUTSIDE RECORDS SUMMARY | 2025-01-25 16:18 | XMS_ITS | Encounter Summary ---
Author Organization [employer] Address [address] [facility] [address] [place] [address] Care Team Providers Care Hog Sawyer Name Role Phone Orly Henry MD Primary Care Provider [phone] Reason for Visit * Reason Comments Routine Cleaning Dental Exam x-rays perio chart Encounter Details Date Type Department Care Team (Late st Contact Info) Description 01/22/2025 3:00 PM EST Office Visit [facility] ADULT DENTAL [address] [place] [address] Zeeshan Mary [address] [place] [address] Dental plaque (Primary Dx) Social History Tobacco Use Types Packs/Day Years [...] Sign Reading Time Taken Comments Blood Pressure 126/76 01/22/2025 3:04 PM EST Pulse - - Temperature - - Respiratory Rate - - Oxygen Saturation - - Inhaled Oxygen Concentration - - Weight - - Height - - Body Mass Index - - documented in this encounter Progress Notes * Mary Byers - 01/22/2025 3:00 PM EST Patient ID: Roro Lucas is a 59 y.o. female. Time Out: Timeout Date: 01/22/25, Timeout Time: 1505 (exam, x-rays, perio chart, prophy) Location: [facility] Tooth: Maxilla and Mandible Procedure: Exam, X-rays, Prophylaxis, and Perio chart Dr. Haywood did exam Verified the above with patient, state tested nursing assistant, and provider. Confirmed via patient's chart, intraorally and by radiographs. Laboratory Technology Teacher: not applicable Medical Hx: Vitals: Blood pressure 126/76. Medications, Med Hx reviewed with patient and updated in chart. Treatment Provided Dental procedures in this visit D1110 - PROPHYLAXIS - ADULT (Completed) Service provider: Mary Hoff provider: Hoang Haywood DMD D9450 - CASE PRESENTATION, DETAILED AND EXTENSIVE TREATMENT PLANNING (Completed) Service provider: Mary Hoff provider: Hoang Haywood DMD D1330 - ORAL HYGIENE INSTRUCTIONS (Completed) Service provider: Mary Hoff provider: Hoang Haywood DMD D0220 - INTRAORAL - PERIAPICAL FIRST RADIOGRAPHIC IMAGE (Completed) Service provider: Mary Hoff provider: Hoang Haywood DMD D0274 - BITEWINGS - 4 RADIOGRAPHIC IMAGES (Completed) Service provider: Mary Byers Billing provider: Hoang Haywood DMD D0230 - INTRAORAL - PERIAPICAL EACH ADDITIONAL RADIOGRAPHIC IMAGE (Completed) Service provider: Mary Byers Billing provider: Hoang Haywood DMD D0230 - INTRAORAL - PERIAPICAL EACH ADDITIONAL RADIOGRAPHIC IMAGE (Completed) Service provider: Mary Byers Billing provider: Hoang Haywood DMD Instruments Used: Ultrasonic Scalers, Hand Scalers, and Prophy angle Fluoride: N/A Oral Cancer Screening: No lesions Head/Neck Exam: No Lesions Calculus: None Plaque: Light Stain: Light Bleeding: Light Gingiva: Recession- generalized and pink OH: Good Perio Chart: Completed Oral hygiene instructions provided to patient including brushing technique and flossing. Recommendations: Duke two times daily, modified peter technique, Floss daily, Electric toothbrush, Soft bristle toothbrush, Duke Tongue, Anti-sensitivity toothpaste Recall Frequency: 6 mo Prophy NV: Chastity Ramos for faith Hygienist: Mary Byers RD Cosigned by Hoang Haywood DMD at 01/22/2025 3:57 PM EST * Hoang Haywood DMD - 01/22/2025 3:00 PM EST C/C: dental exam and crack fillings I.O.E: localized plaque accumulation, crack cervical filling #21, missing cervical filling #15, gingival recession teeth E.O.E: wnl OCS: wnl Head and neck: wnl Radiographic: gen slight periodontal bone loss Dx: gen chronic slight periodontitis, broken cervical fillings, gingival recession teeth Tx: prophy, recall exam, fillings Sonya documented in this encounter Plan of Treatment Upcoming Encounters Date Type Department Care Team (Late st Contact Info) Description 02/12/2025 3:00 PM EDT Office Visit [facility] ADULT DENTAL [address] [place] [address] Hoang Haywood, DMD [address] [place] [address] 07/30/2025 3:00 PM EDT Office Visit [facility] ADULT DENTAL [address] [place] [address] Mary Byers [address] [place] [address] Scheduled Orders Name Type Priority Associated Diagnoses Orde r Schedule PROPHYLAXIS - ADULT Dental Routine 1 Occ urrences starting 01/22/2025 ORAL HYGIENE INSTRUCTIONS Dental Routine 1 Occurrences starting 01/22/2025 CASE PRESENTATION, DETAILED AND EXTENSIVE TREATMENT PLANNING Dental Routine 1 Occurrences starting 01/22/2025 15 B(V) 15 B(V) RESIN-BASED COMPOSITE - 1 SURF, POSTERIOR Dental Routine [address] arting 01/22/2025 documented as of this encounter Procedures Procedure Name Priority Date/Time Associated Diagnosis Comments PROPHYLAXIS - ADULT Routine 01/22/2025 3 :00 PM EST Dental plaque PERIODIC ORAL EVALUATION - ESTABLISHED PATIENT Routine 01/22/2025 3:00 PM EST ORAL HYGIENE INSTRUCTIONS Routine 2024 3:00 PM EST Dental plaque INTRAORAL - [...] Routine 01/22/2025 3:00 PM EST Dental plaque documented in this encounter Visit Diagnoses Diagnosis Dental plaque- Primary Accretions on teeth documented in this encounter Additional Health Concerns Assessment Noted Time PHQ-9 Depression Total Score: 0 08/12/20 23 1:18 PM EDT documented as of this encounter Care Teams Hog Sawyer Relationship Specialty Start Date End Date Orly Henry MD [address] [place] [address] PCP - General Family Medicine 11/10/20 documented as of this encounter
--- OUTSIDE RECORDS SUMMARY | 2025-01-25 16:18 | XMS_ITS | Encounter Summary ---
Author Organization [employer] [facility] Address [address] [place] [address] 7[address] [place] [address] Care Team Providers Care It Help Desk Analyst Name Role Phone Orly Henry MD Primary Care Provider [phone] Encounter Details Date Type Department Care Team (Late Contact Info) Description 08/07/2023 Orders Only [facility] MEDICINE [address] [place] [address] Provider, MD Roldan Social History Tobacco Use Types Packs/Day Years Used Date Smoking Tobacco: Never Smokeless Tobacco: Never Alcohol Use Standard Drinks/Week Comments Never 0 (1 standard drink = 0.6 oz pur e alcohol) Comments Unknown Sex and Gender Information Value [...] Description 02/12/2025 3:00 PM EDT Office Visit [facility] ADULT DENTAL [address] [place] [address] Hoang Haywood DMD [address] [place], [place] [phone] 07/30/2025 3:00 PM EDT Office Visit [facility] ADULT DENTAL [address] [place] [address] Mary Byers [address] [place] [address] documented as of this encounter Procedures Procedure Name Priority Date/Time Associated Diagnosis Comments HM COLONOSCOPY Routine 11/04/2018 documented in this encounter Results * Hm Colonoscopy (11/04/2018) us Historical Provider HEALTH MAINTENANCE Final Result documented in this encounter Visit Diagnoses Not on filedocumented in this encounter Care Teams It Help Desk Analyst Relationship Specialty Start Date End Date Orly Henry MD [address] [place] [address] PCP - General Family Medicine 11/10/20 documented as of this encounter
--- OUTSIDE RECORDS SUMMARY | 2025-01-25 16:18 | XMS_ITS | Encounter Summary ---
Author Organization [employer] [facility] Address [address] [place] [address] 7[address] [place] [address] Care Team Providers Care Baking Factory Worker Name Role Phone Orly Henry MD Primary Care Provider [phone] Encounter Details Date Type Department Care Team (Latest Contact Info) Description 03/27/2019 Abstract [facility] CONVERSIONS Dental, Provider, DDS Social History Tobacco [...] Description 02/12/2025 3:00 PM EDT Office Visit [facility] ADULT DENTAL [address] [place] [address] Hoang Haywood DMD [address] [place] [address] 07/30/2025 3:00 PM EDT Office Visit [facility] ADULT DENTAL [address] [place] [address] Mary Byers [address] [place] [address] documented as of this encounter Visit Diagnoses Not on filedocumented in this encounter Care Teams Baking Factory Worker Relationship Specialty Start Date End Date Orly Henry MD [address] [place] [address] PCP - General Family Medicine 11/10/20 documented as of this encounter
--- OUTSIDE RECORDS SUMMARY | 2025-01-25 16:18 | XMS_ITS | Encounter Summary ---
Author Organization [employer] [facility] Address [address] [place] [address] [address] [place] [address] Care Team Providers Care Health Sciences Department Chair Name Role Phone Orly Henry MD Primary Care Provider [phone] Encounter Details Date Type Department Care Team ([facility] Contact Info) Description 09/04/2023 Orders Only [facility] MEDICINE [address] [place] [phone] Orly Henry MD [address] [place], [place] [phone] Postmenopausal bleeding (Primary Dx); Endometrial thickening on ultrasound Social History Tobacco Use Types Packs/Day Years Used Date Smoking Tobacco: Never Smokeless Tobacco: Never Alcohol Use Standard Drinks/Week Comments Never 0 (1 standard drink = 0.6 oz pur e alcohol) Depression Answer Date Recorded Patient Health Questionnaire-9 Score 0 08/12/2023 Depression Answer Date Recorded Patient Health Questionnaire-2 Score 0 08/12/2023 Comments Unknown Sex and Gender Information Value Date Recorded Sex Assigned at Female 10/01/2022 10:16 AM EDT Legal Sex Female 10:16 AM EDT Gender Identity Female 10/01/2022 10:16 AM EDT Sexual Orientation Straight 10/01/2022 10 :16 AM EDT documented as of this encounter Plan of Treatment Upcoming Encounters Date Type Department Care Team ([facility] Contact Info) Description 02/12/2025 3:00 PM EDT Office Visit [facility] ADULT DENTAL [address] [place] [address] Hoang Haywood DMD [address] [place] [address] 07/30/2025 3:00 PM EDT Office Visit [facility] ADULT DENTAL [address] [place] [address] Mary Byers [address] [place] [address] documented as of this encounter Procedures Procedure Name Priority Date/Time Associated Diagnosis Comments BI MAMMOGRAM DIAGNOSTIC TOMOSYNTHESIS BILATERAL Routine 09/19/2023 3:55 PM EDT documented in this encounter Results * BI Mammogram Diagnostic Tomosynthesis Bilateral (09/19/2023 3:55 PM EDT) Anatomical Region Laterality Modality Breast Bilateral Mammography 09/19/2023 3:55 PM EDT Narrative 09/19/2023 4:17 PM EDT ? [facility] [place] ? [address] ?[place] [address] ? Mammography Report ? Signed ? Patient: Roro Lucas N ?MR#: [id number] ?? [id number] ? : 1965 ?Acct:[id number] ? Age/Sex: 58 / F ?ADM Date: 09/19/23 ? Loc: HO.MAMMO ? Attending Dr: Orly Henry MD ? Ordering Physician: Orly Henry ?Results: 3.12MProb ?? ably Benign Finding - 12 month F/U Suggested ? Date of Service: 09/19/ ?Follow Up: 12 month diagnos ?? tic follow up ? Procedure(s): MM tomosynthesis diagnostic BI ?? Accession Number(s): [id number] ? cc: Orly Henry ? EXAMINATION: ?? MM DIAGNOSTIC DIGITAL BREAST TOMOSYNTHESIS, BILATERAL ? CLINICAL INFORMATION: ? 1 year Follow-up parenchymal asymmetries right breast medial aspect ?? posterior one third seen on screening exam CC projection, and mid ?? posterior right MLO screening exam projection. ? COMPARISON: ?? Mammography: 12/25/2022, 05/16/2022, 05/12/2022, 03/23/2021. Screening ?? breast ultrasound right 05/16/2022. ? TECHNIQUE: ?? Digital breast tomosynthesis is performed in both the craniocaudal and ?? mediolateral oblique views along with computer-aided detection (CAD). ?? Synthesized 2D images are generated from the tomosynthesis. In ?? addition, 3-D spot compression view in the left CC projection was ?? obtained. ? FINDINGS: ?? There are scattered areas of fibroglandular density (ACR BI-RADS breast ?? composition Category b). ? There has been no significant interval change in the parenchymal ?? asymmetries in the right breast which localizes posteromedially on the ?? CC projection, and just inferior to the nipple line on the MLO ?? projection, posterior one third. ??These have the appearance of ?? overlapping tissue artifact/summation artifact. Previous diagnostic ?? compression views and ultrasound demonstrated no persistent ?? abnormalities. These are probably benign, and 1 year follow-up ?? recommended when the patient is due for one year follow-up screening ?? examination. ? Otherwise, There are no suspicious masses, suspicious grouped ?? calcifications, or areas of architectural distortion in either breast. ?? The parenchymal pattern is stable from prior exams. ? MM/MM tomosynthesis diagnostic BI ?? IMPRESSION: ?? There are no significant changes from prior study. ? Parenchymal asymmetries in the posterior RIGHT breast are stable over ?? one year without change, and consistent with islands of normal ?? glandular tissue. These will be evaluated again in one year on standard ?? CC and MLO views. ? There is no findings suspicious for malignancy in either breast. ? ASSESSMENT: ? BI-RADS BI-RADS 3 - Probably benign finding(s) - 12 month follow-up ?? suggested ? RECOMMENDATION: ?? 12 month diagnostic follow up ? Results were provided to the patient at time of visit by the ?? technologist. ? This patient's information was entered into a reminder system with a ?? target due date for their next mammogram. ? Dictated By: ?Jerome Kinsey MD ? Signed By: ?<Electronically signed by Jerome Kinsey MD in OV> ?10/ 1613 ? DD/ 1555 ? TD/TT: ? It Security Specialist: ? Procedure Note Gwendolyn, Image - [facility]19/[facility] [address] [place] [address] Mammography Report Signed Patient: Roro Lucas [facility]#: [id number] 235 : 1965Acct:[id number] Age/Sex: 58 / FADM Date: 09/19/23 Loc: HO.MAMMO Attending Dr: Orly Henry MD Ordering Physician: Patricia Henryults: 3.12MProb ably Benign Finding - 12 month F/U Suggested Date of Service: 09/19/23Follow Up: 12 month diagnos tic follow up Procedure(s): MM tomosynthesis diagnostic BI Accession Number(s): [id number] cc: Orly Henry EXAMINATION: MM DIAGNOSTIC DIGITAL BREAST TOMOSYNTHESIS, BILATERAL CLINICAL INFORMATION: 1 year Follow-up parenchymal asymmetries right breast medial aspect posterior one third seen on screening exam CC projection, and mid posterior right MLO screening exam projection. COMPARISON: Mammography: 12/25/2022, 05/16/2022, 05/12/2022, 03/23/2021. Screening breast ultrasound right 05/16/2022. TECHNIQUE: Digital breast tomosynthesis is performed in both the craniocaudal and mediolateral oblique views along with computer-aided detection (CAD). Synthesized 2D images are generated from the tomosynthesis. In addition, 3-D spot compression view in the left CC projection was obtained. FINDINGS: There are scattered areas of fibroglandular density (ACR BI-RADS breast composition Category b). There has been no significant interval change in the parenchymal asymmetries in the right breast which localizes posteromedially on the CC projection, and just inferior to the nipple line on the MLO projection, posterior one third. These have the appearance of overlapping tissue artifact/summation artifact. Previous diagnostic compression views and ultrasound demonstrated no persistent abnormalities. These are probably benign, and 1 year follow-up recommended when the patient is due for one year follow-up screening examination. Otherwise, There are no suspicious masses, suspicious grouped calcifications, or areas of architectural distortion in either breast. The parenchymal pattern is stable from prior exams. MM/MM tomosynthesis diagnostic BI IMPRESSION: There are no significant changes from prior study. Parenchymal asymmetries in the posterior RIGHT breast are stable over one year without change, and consistent with islands of normal glandular tissue. These will be evaluated again in one year on standard CC and MLO views. There is no findings suspicious for malignancy in either breast. ASSESSMENT: BI-RADS BI-RADS 3 - Probably benign finding(s) - 12 month follow-up suggested RECOMMENDATION: 12 month diagnostic follow up Results were provided to the patient at time of visit by the technologist. This patient's information was entered into a reminder system with a target due date for their next mammogram. Dictated By: Jerome Kinsey MD Signed By: <Electronically signed by Jerome Kinsey MD in OV> 09/19/23 1613 DD/ 1555 TD/TT: It Security Specialist: us Orly Henry MD IMG BI PROCEDURES Final Result documented in this encounter Visit Diagnoses Diagnosis Postmenopausal bleeding- Primary Endometrial thickening on ultrasound documented in this encounter Additional Health Concerns Assessment Noted Time PHQ-9 Depression Total Score: 0 08/12/20 23 1:18 PM EDT documented as of this encounter Care Teams Health Sciences Department Chair Relationship Specialty Start Date End Date Orly Henry MD [address] [place] [address] PCP - General Family Medicine 11/10/20 documented as of this encounter
--- OUTSIDE RECORDS SUMMARY | 2025-01-25 16:18 | XMS_ITS | Encounter Summary ---
Author Organization [facility] Address [address] [place] [address] [address] [place] [address] Care Team Providers Care Childcare Administrator Name Role Phone Orly Henry MD Primary Care Provider [phone] Encounter Details Date Type Department Care Team (Latest Contact Info) Description 08/14/2021 Abstract [facility] CONVERSIONS Dental, Provider, DDS Social History Tobacco [...] Description 02/12/2025 3:00 PM EDT Office Visit [facility] ADULT DENTAL [address] [place] [address] Hoang Haywood DMD [address] [place] [address] 07/30/2025 3:00 PM EDT Office Visit [facility] ADULT DENTAL [address] [place] [address] Mary Byers [address] [place] [address] documented as of this encounter Visit Diagnoses Not on filedocumented in this encounter Care Teams Childcare Administrator Relationship Specialty Start Date End Date Orly Henry MD [address] [place] [address] PCP - General Family Medicine 11/10/20 documented as of this encounter
[2025-01-25 16:24] LABS: Estimated Average Glucose 108 mg/dL; Hemoglobin A1C 124.2144 umol/L; Hemoglobin A1c % 5.4 % (<6.0)
[2025-01-25 17:27] LABS: Alanine Aminotransferase 17 U/L (0-31); Anion Gap 12 (12-20); Aspartate Amino Transferase 49 U/L (5-31); Bilirubin Total 0.5 mg/dL (0.0-1.0); Blood Urea Nitrogen 15 mg/dL (9-16); Carbon Dioxide 25 mmol/L (22-29); Chloride 109 mmol/L (96-108); Cholesterol 170 mg/dL (<200); Estimated Glomerular Filt Rate > 60; Glucose Random 127 mg/dL (60-115); HDL Cholesterol 49 mg/dL (>40); LDL Cholesterol Calculated 74 mg/dL (<100); Potassium 3.9 mmol/L (3.3-5.1); Sodium 142 mmol/L (135-145); Total Protein 7.6 g/dL (6.5-8.0); Triglycerides 235 mg/dL (<150)
[2025-01-25 17:39] LABS: TSH reflex Free T4 0.52 uIU/mL (0.32-4.0)
[2025-01-25 17:57] LABS: Alkaline Phosphatase 113 U/L (39-117)
== END 2025-01-25 14:11 | disposition home or self-care (01) ==
LOC: HO.HHCL 14:10
PROVIDERS: Visit Provider General Practice
DX: E66.3 Overweight (principal); Z13.1 Encounter for screening for diabetes mellitus
CPT/HCPCS: 36415; 80053; 80061; 83036; 84443

== ENCOUNTER 2025-06-22 14:33 | Outpatient (AMB) | payer OTHER, SELFPAY ==
--- NOTE | 2025-06-22 14:33 | A.OFFVIS_ITS ---
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 Patient has had pain in her feet. She gets swelling in both legs but the right is worse. She gets leg cramps at night. This has been going on for about two months. 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 Complaints include pain over varicosities, swelling of lower extremities, cramping, fatigue, and heaviness of the lower extremities. It has been affecting there daily activities including walking. It is noted more so in right leg. Patient reports what she believes to be scleral injections done 4 years prior at [facility] Patient denies any history of DVT/ PE.- reports she was worked up for DVT at [facility] approximately 2 months prior. At that time she was negative for DVT Patient denies any history of phlebitis. Trial of compression includes - [id number] They now present for vascular evaluation regarding their varicose veins. [facility] Medical History Renal calculi Surgical History Hx of tubal ligation H/O abdominoplasty Family History Mother Fatty liver Sister High cholesterol Maternal Grandfather Stroke Brother Psoriasis Social History Household Members Other:: daughter Housing Other:: daughter Alcohol intake: never Patient Tobacco Use Status: Never used Tobacco Current occupational status: employed Current occupation: [employer]/rt handed Sexual orientation: Straight/Heterosexual Gender identity: Female Review of Systems Const Reports as per HPI ENT Reports no additional complaints Card Denies chest pain, Denies chest pain at rest and Denies chest pain with activity Resp Denies chest congestion and Denies cough GI Reports no additional complaints Musc Details: pain over varicosities, aching of lower extremities, swelling, cramping, heaviness and tiredness, itching Denies abnormal gait Skin/Breast Reports pruritus and Denies wounds Neuro Reports no additional complaints and Denies abnormal gait Psych Denies no additional complaints Physical Exam Const General: cooperative, healthy appearing and comfortable Orientation/consciousness: oriented to person, oriented to place and oriented to time Neck Carotids: no bruits Chest Chest palpation & inspection: normal inspection of the chest and normal palpation of entire chest wall Resp Effort & Inspection: normal respiratory effort and able to speak in complete sentences Cardio Rate: regular rate Heart sounds: S1 normal heart sound present and S2 normal heart sound present Peripheral pulses: Peripheral pulses 2+ throughout GI Inspection: Yes normal to inspection Skin Other: +2 edema, right more so than left CEAP Classification C4 - skin color changes Ep - Etiology Primary As - superficial veins P - reflux General skin exam: dry skin Neuro General: oriented to person, oriented to place and oriented to time Extrem Right lower extremity: full ROM, normal capillary refill and edema Left lower extremity: full ROM, normal capillary refill and edema Psych Mental Status: mental status grossly normal Assessment & Plan Assessment & Plan (1) Varicose veins of right lower extremity with inflammation: Code(s): I83.11 - Varicose veins of right lower extremity with inflammation Category: Medical Plan: In short, the patient has evidence of venous insufficiency. I have discussed the pathophysiology with the patient. In addition I have provided informational material regarding venous disease to the patient. We have discussed conservative measures including compression, elevation, and exercise. I have also provided a handout regarding appropriate use of compression stocking s and where to purchase good compression stockings as well. I have taken the liberty of ordering venous insufficiency testing with the patient. They will follow up with me after testing. The patient had an opportunity to ask questions regarding the treatment plan. All questions were answered. Imaging studies, laboratory studies and physical exam results were discussed and reviewed in detail. No major barriers to understanding were identified. The patient expressed understanding and agreement with the above treatment plan. The patient is aware they should contact our office by phone for worsening of the current condition or the appearance of new symptoms. Thank you for allowing me to participate in the vascular care of this patient. If you have any questions or concerns regarding the treatment for the above condition please do not hesitate to contact me. The office telephone contact is [phone]. This note is constructed using voice recognition software. While every effort has been made to ensure accuracy, assembly department supervisor errors may have been included. Thank you for allowing me to participate in the care of your patient. Yours sincerely, Bo Bee MD, FACS, R.P.V.I. Orders: Orders US venous duplex LE BI Today I83.11 - Varicose veins of right lower extremity with inflammation Coding Level of Care Code New Pt Level 4 (44601) Diagnoses Varicose veins of right lower extremity with inflammation I83.11
--- OUTSIDE RECORDS SUMMARY | 2025-06-22 15:46 | XMS_ITS | Encounter Summary ---
Author Organization [employer] Address [address] [place] [address] 7t [place] [address] Care Team Providers Care Panel Beater Name Role Phone Orly Henry MD Primary Care Provider [phone] Encounter Details Date Type Department Care Team (Latest Contact Info) Description 03/27/2019 Abstract [facility] CONVERSIONS Dental, Provider, DDS Social History [...] Encounters Date Type Department Care Team ( st Contact Info) Description 10/05/2025 3:00 PM EST Office Visit [facility] ADULT DENTAL [address] [place] [address] Zeeshan, Mary [address] [place] [address] documented as of this encounter Visit Diagnoses Not on filedocumented in this encounter Care Teams Panel Beater Relationship Specialty Start Date End Date Orly Henry MD [address] [place] [address] PCP - General Family Medicine 11/10/20 documented as of this encounter
== END 2025-06-22 15:16 | disposition home or self-care (01) ==
LOC: HO.HVS 14:34
PROVIDERS: PCP General Practice; Visit Provider Surgery Vascular Surgery
DX: I83.11 Varicose veins of right lower extremity with inflammation (principal)
CPT/HCPCS: 99204

== ENCOUNTER 2025-07-27 08:58 | Outpatient (AMB) | payer OTHER, SELFPAY ==
--- NOTE | 2025-07-27 09:03 | MHC.OFFVIS ---
Vital Signs 07/27/25 09:07 Height 5 ft 3 in Weight 141 lb BMI 25.0 Intake Visit Reasons: Right knee Durolane Gel Injection Intake Note: Roro is a 60 year old female who presents today for her Right knee Durolane Gel Injection. Patient report previous injections has provided relief until now. Allergies No Known Allergies Allergy (Verified 06/22/25 14:36) pt states no food/medication a Allergy (Unknown, Uncoded 01/01/24 07:36) Unknown HPI HPI Right knee Durolane Gel Injection: Details: Ms. Lucas is a 60-year-old female who presents to the office today for right knee Durolane gel injection which was approved by her insurance. [facility] Medical History Renal calculi Surgical History Hx of tubal ligation H/O abdominoplasty Family History Mother Fatty liver Sister High cholesterol Maternal Grandfather Stroke Brother Psoriasis Social History Household Members Other:: daughter Housing Other:: daughter Alcohol intake: never Patient Tobacco Use Status: Never used Tobacco Current occupational status: employed Current occupation: [employer]/rt handed Sexual orientation: Straight/Heterosexual Gender identity: Female Review of Systems Const All systems reviewed & are unremarkable except as noted in HPI and below Physical Exam Vital Signs: BMI result Body Mass Index 25.0 Const General: cooperative, healthy appearing and no acute distress Resp Effort & Inspection: normal respiratory effort and able to speak in complete sentences Cardio Rate: regular rate Peripheral pulses: Peripheral pulses 2+ throughout GI Palpation (GI): Soft to palpation Skin Lesions: no lesions Rashes: no rashes Extrem Other: Right knee normal to inspection. No ecchymosis, erythema or edema. Flexion and extension to end range. NVI. Office Procedures AMB Joint Injection/Aspiration Joint Injection/Aspiration Primary Site: right knee Prep: site was prepped using aseptic technique, ethochloride spray was applied and injection warnings given Injected: other (Durolane gel injection) Approach Used: anterolateral Procedure: The patient tolerated the procedure well, but had some pain with the injection and there was some relief with the local anesthesia Coding 91376 - Large joint Procedure code (CPT) selection complete Assessment & Plan Assessment & Plan (1) Osteoarthritis of right knee: Code(s): M17.11 - Unilateral primary osteoarthritis, right knee Category: Medical Qualifiers: Osteoarthritis type: unspecified Qualified Code(s): M17.11 - Unilateral primary osteoarthritis, right knee Plan The patient was offered a Durolane gel injection in the right knee. The patient was explained the risks, benefits, and alternatives to receiving this injection. After receiving consent for the injection, the patient had the procedure done while in the office today. The patient tolerated the procedure well with no complications. Follow-up will be PRN, or sooner if needed Coding Level of Care Code Procedure Only Diagnoses Osteoarthritis of right knee, unspecified osteoarthritis type M17.11 Osteoarthritis type: unspecified CPT Codes Coding - 85637 Large joint: 54663 - Large joint ([id number])
[2025-07-27 09:07] VITALS: BMI 25.0
--- OUTSIDE RECORDS SUMMARY | 2025-07-27 09:18 | XMS_ITS | Encounter Summary ---
Author Organization [employer] Address [address] [place] [address] 7t [place] [address] Care Team Providers Care Cold Header Name Role Phone Orly Henry MD Primary Care Provider [phone] Encounter Details Date Type Department Care Team (Latest Contact Info) Description 03/27/2019 Abstract [facility] CONVERSIONS Dental, Provider, DDS Social History Tobacco [...] Description 10/05/2025 3:00 PM EST Office Visit [facility] ADULT DENTAL [address] [place] [address] Zeeshan, Mary [address] [place] [address] documented as of this encounter Visit Diagnoses Not on filedocumented in this encounter Care Teams Cold Header Relationship Specialty Start Date End Date Oryl Henry MD [address] [place] [address] PCP - General Family Medicine 11/10/20 documented as of this encounter
--- OUTSIDE RECORDS SUMMARY | 2025-07-27 09:18 | XMS_ITS | Encounter Summary ---
Author Organization [employer] Address [address] [place] [address] 7t [place] [address] Care Team Providers Care Jack Spinner Name Role Phone Orly Henry MD Primary Care Provider [phone] Encounter Details Date Type Department Care Team (Latest Contact Info) Description 08/14/2021 Abstract [facility] CONVERSIONS Dental, Provider, DDS Social History [...] Description 10/05/2025 3:00 PM EST Office Visit [facility] ADULT DENTAL [address] [place] [address] Zeeshan, Mary [address] [place] [address] documented as of this encounter Visit Diagnoses Not on filedocumented in this encounter Care Teams Jack Spinner Relationship Specialty Start Date End Date Orly Henry MD [address] [place] [address] PCP - General Family Medicine 11/10/20 documented as of this encounter
--- OUTSIDE RECORDS SUMMARY | 2025-07-27 09:19 | XMS_ITS | Encounter Summary ---
Author Organization [employer] Address [address] [place] [address] 7 [place] [address] Care Team Providers Care Medical Insurance Collector Name Role Phone Orly Henry MD Primary Care Provider [phone] Encounter Details Date Type Department Care Team ([facility] Contact Info) Description 09/04/2023 Orders Only [facility] MEDICINE [address] [place] [address] [phone] Orly Henry MD [address] [place], [place] [phone] Postmenopausal bleeding (Primary Dx); Endometrial thickening on [...] Encounters Date Type Department Care Team (Late Contact Info) Description 10/05/2025 3:00 PM EST Office Visit [facility] ADULT DENTAL [address] [place], [place] [phone] Mary Byers [address] [place] [address] documented as of this encounter Procedures Procedure Name Priority Date/Time Associated Diagnosis Comments BI MAMMOGRAM DIAGNOSTIC TOMOSYNTHESIS BILATERAL Routine 09/19/2023 3:55 PM EDT documented in this encounter Results * BI Mammogram Diagnostic Tomosynthesis Bilateral (09/19/2023 3:55 PM EDT) Anatomical Region Laterality Modality Breast Bilateral Mammography 09/19/2023 3:55 PM EDT Narrative 09/19/2023 4:17 PM EDT [facility] [address] [place] [address] Mammography Report Signed Patient: Roro Lucas MR#: [id number] 235 : 1965 Acct:[id number] Age/Sex: 58 / F ADM Date: 09/19/23 Loc: HO.MAMMO Attending Dr: Orly Henry MD Ordering Physician: Orly Henry Results: 3.12MProb ably Benign Finding - 12 month F/U Suggested Date of Service: 09/19/23 Follow Up: 12 month diagnos tic follow up Procedure(s): MM tomosynthesis diagnostic BI Accession Number(s): [id number] cc: Orly Henry EXAMINATION: MM DIAGNOSTIC DIGITAL [...] in OV> 09/19/23 1613 DD/ 1555 TD/TT: Mainspring Strip Gauger: Procedure Note Donotuseinterpreter, Image - 09/19/2023 [facility] [address] [place] [address] Mammography Report Signed Patient: Roro Lucas [facility]#: [id number] 235 : 1965Acct:[id number] Age/Sex: 58 / FADM Date: 09/19/23 Loc: MAMMO Attending Dr: Orly Henry MD Ordering Physician: Patricia Henryults: 3.12MProb ably Benign Finding - 12 month F/U Suggested Date of Service: 09/19/23Follow Up: 12 month diagnos tic follow up Procedure(s): MM tomosynthesis diagnostic BI Accession Number(s): [id number] cc: Orly Henry EXAMINATION: MM DIAGNOSTIC DIGITAL [...] by Jerome Kinsey MD in OV> 09/19/23 9895 DD/ 7735 TD/TT: Mainspring Strip Gauger: us Orly Henry MD IMG BI PROCEDURES Final Result documented in this encounter Visit Diagnoses Diagnosis Postmenopausal bleeding- Primary Endometrial thickening on ultrasound documented in this encounter Additional Health Concerns Assessment Noted Time PHQ-9 Depression Total Score: 0 08/12/20 23 1:18 PM EDT documented as of this encounter Care Teams Medical Insurance Collector Relationship Specialty Start Date End Date Orly Henry MD [address] [place] [address] PCP - General Family Medicine 11/10/20 documented as of this encounter
--- OUTSIDE RECORDS SUMMARY | 2025-07-27 09:19 | XMS_ITS | Clinical Summary ---
Author Organization [employer] Address [address] [facility] 7t [place] [address] Care Team Providers Care Talking Books Library Clerk Name Role Phone Orly Henry MD Primary Care Provider [phone] Allergies No known active allergies Medications PARoxetine (Paxil) 10 MG tabletIndications: Postmenopausal symptoms Take 1 tablet (10 mg) by mouth in the evening. 30 tablet 11 5 026 Active Glucosamine-Chondr oitin 250-200 MG capsuleIndications :Localized osteoarthritis of right knee Take 1 tablet by mouth Once per day. 90 capsule 3 5 Active calcium carbonate (Calcium 600) 600 MG tabletIndications: Localized osteoarthritis of right knee Take 1 tablet (600 mg) by mouth Once per day. 90 tablet 3 5 026 Active triamcinolone (Kenalog) 0.1 % creamIndications:R chary Apply topically if needed at bedtime for rash. 45 g 2 5 Active acetaminophen (Tylenol Extra Strength) 500 MG tablet Take 1 tablet (500 mg) by mouth every 8 (eight) hours if needed for moderate pain. 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 Localized osteoarthritis of right knee 3 Assessment & Plan (08/14/2023 9:27 AM EDT): [...] - has mammo scheduled Sep 2023 Pap 2021 NILM/HPV neg Postmenopausal symptoms 08/14/2023 Assessment & Plan (08/14/2023 9:30 AM EDT): Symptoms managed with Combipatch, now reporting breakthrough bleeding Hand pain 08/12/2023 Menopausal flushing 08/12/2023 Patellofemoral stress syndrome 08/12/2023 Encounters Date Type Department Care Team Description 06/08/2025 Telephone [facility] MEDICINE [address] [place], [place] [phone] Orly Henry MD Durable Medical Equipment 06/02/2025 6:40 PM EDT Office Visit [facility] WALK[facility]IN CENTER [address] [place], [place] [phone] Name, MD Hieu Venous insufficiency of both lower extremities (Primary Dx) 06/02/2025 Travel 06/02/2025 Telephone [facility] MEDICINE [address] [place] [address] Orly Henry MD Nurse Triage from Last 3 Months Immunizations Immunization Administration Dates Next Due Influenza injectable quadriv [...] Sign Reading Time Taken Comments Blood Pressure 117/73 06/02/2025 6:35 PM EDT Pulse 70 06/02/2025 6:35 PM EDT Temperature 36.6 C (97.8 F) 06/02/2025 6:35 PM EDT Respiratory Rate 12 06/02/2025 6:35 PM EDT Oxygen Saturation 98% 06/02/2025 6:35 PM EDT Inhaled Oxygen Concentration - - Weight 65 kg (143 lb 3.2 oz) 06/02/2025 6:35 PM EDT Height 157.5 cm (5' 2 ) 06/02/2025 6:35 PM EDT Body Mass Index 26.19 06/02/2025 6:35 PM EDT Plan of Treatment Upcoming Encounters Date Type Department Care Team (Late st Contact Info) Description 10/05/2025 3:00 PM EST Office Visit [facility] ADULT DENTAL [address] [place] [address] Zeeshan, Mary [address] [place] [address] Health Maintenance Due Date Last Done Comments CT Colonography 1965 FIT DNA/Cologuard 1965 FIT 1965 FOBT 1965 Sigmoidoscopy 1965 Disability Screening 1967 Alcohol/Substance Use Screening 1979 Hepatitis B Vaccines (1 of 3 - 19+ 3-dose series) 1986 Pneumococcal Vaccine: 50+ Years (1 of 1 - PCV) 2017 Cervical Cancer Screening 03/13/2024 Pap Smear 03/13/2024 03/13/2021 COVID-19 Vaccine ( season) 2024 12/05/2021, 04/20/2021, 03/30/2021 HPV/Cotest 07/17/2025 07/17/2022, 0805/2022, 03/13/2021 Dental Oral Exam 07/23/2025 01/22/2025, , 07/14/2024 Dental Prophylaxis 07/23/2025 01/22/2025, 07/14/2024 Influenza Vaccine (#1) 2025 , 11/22/2021, 08/12/2020, Additional history exists SDOH Screening 09/21/2025 09/21/2024 DTaP/Tdap/Td Vaccines (2 - Td or Tdap) 10/14/2025 10/14/2015 Mammogram 12/18/2025 12/18/2024, 09/01, 12/25/2022, Additional history exists Dental X-Ray: Bitewings 01/23/2026 01/22/20, 07/14/2024, 08/23/2022 Depression Screening 01/25/2026 01/25/2025, 01/25/20 Tobacco Screening 03/31/2026 03/31/2025 Dental X-Ray: Full Mouth 07/15/2027 07/14/2024, 0708/2019 Colonoscopy 11/04/2028 11/04/2018 Colorectal Cancer Screening 11/04/2028 [...] patient's age to complete this topic Meningococcal B Vaccine Aged Out No l onger eligible based on patient's age to complete [...] 01/22/2025 3 :00 PM EST Dental plaque BITEWINGS - 4 RADIOGRAPHIC IMAGES Routine 01/22/2025 3:00 PM EST Dental plaque PERIODIC ORAL EVALUATION - ESTABLISHED PATIENT Routine 01/22/2025 3:00 PM EST BI MAMMOGRAM DIAGNOSTIC TOMOSYNTHESIS BILATERAL Routine 12/18/2024 [...] PM EST Narrative 12/18/2024 1:47 PM EST [facility] [address] [place] [address] Mammography Report Signed Patient: Roro Lucas MR#: [id number] 235 : 1965 Acct:[id number] Age/Sex: 59 / F ADM Date: 12/18/24 Loc: .MAMMO Attending Dr: Orly Henry MD Ordering Physician: Orly Henry Results: 2Benign F indings Date of Service: 12/18/24 Follow Up: 1 Year From Orig ina Mammogram Procedure(s): MM tomosynthesis diagnostic BI Accession Number(s): [id number] cc: Orly Henry EXAMINATION: MM DIAGNOSTIC DIGITAL [...] La Rosa DO 12/18/2024 01:44 PM EST Dictated By: Yumiko De La Rosa DO Signed By: <Electronically signed by Yumiko De La Rosa DO in OV> 12/18/24 1344 DD/ 1305 TD/TT: 12/18/24 1322 Change Analyst: Procedure Note Donotuseinterpreter, Image - 12/18/2024 [facility] [address] [place] [address] Mammography Report Signed Patient: Roro Lucas [facility]#: [id number] 235 : 1965Acct:[id number] Age/Sex: 59 / FADM Date: 12/18/24 Loc: HO.MAMMO Attending Dr: Orly Henry MD Ordering Physician: Patricia Henryults: 2Benign F indings Date of Service: 12/18/24Follow Up: 1 Year From Orig ina Mammogram Procedure(s): MM tomosynthesis diagnostic BI Accession Number(s): [id number] cc: Orly Henry EXAMINATION: MM DIAGNOSTIC DIGITAL [...] La Rosa DO 12/18/2024 01:44 PM EST Dictated By: Yumiko De La Rosa DO Signed By: <Electronically signed by Yumiko De La Rosa DO in OV> 12/18/24 1344 DD/ 1305 TD/TT: 12/18/24 1322 Change Analyst: Orly Henry MD IMG BI PROCEDURES Edited Resul t - Final * Hepatitis C Antibody (08/03/2022 4:56 PM EDT) Hepatitis C Antibody Nonreactive Nonreactive [facility] Comment: Antibodies to HCV not detected; does not exclude early acute HCV infection. Hepatitis B Core Antibody Nonreactive Nonreactive [facility] HIV AB/AG Nonreactive Nonreactive [facility] Comment: HIV-1 p24 Ag and/or HIV-1/HIV-2 Ab not detected. A test result that is nonreactive does not exclude the possibility of exposure to or infection with HIV-1 and/or HIV-2. Nonreactive results in this assay for individuals with prior exposure to HIV-1 and/or HIV-2 may be due to antigen and antibody levels that are below the limit of detection of this assay. The Paige Winch Stripper HIV Ag/Ab Combo assay result and supplemental assay results should be interpreted in conjunction with the patient's clinical presentation, history and other laboratory results. If the results are inconsistent with clinical evidence, additional testing is suggested to confirm the result. 08/03/2022 4:56 PM EDT us Ana María Ferguson HISTORICAL/NON ORDERABLE LABS Fi nal Result [facility] [address] * HPV E6/E7 RFLX PHILIPP 16 18/45 (07/17/2022 4:05 PM EDT) HPV 16 RNA [facility] HPV 18/45 RNA [facility] HPV E6 E7 ADD [facility] HPV mRNA E6/E7 rflx Not Detected Not Detected [facility] Comment: Methodology: Restaurant Cook-Mediated Amplification This assay detects E6/E7 viral messenger RNA (mRNA) from 14 high-risk HPV types (16,18,31,33,35,39,45,51,52,56,58,59,66,68). Cervical sources are required for HPV testing. If a vaginal source from a patient who has had a total hysterectomy with removal of cervix was submitted, please contact the testing laboratory for alternative testing options. For additional information, please refer to http://education.Mist.io/faq/FJW225b5 (This link if provided for information/ educational purposes only.) THIS TEST WAS PERFORMED AT: [facility] [address] [place] [address],[place] [address] CHRISTINE ALVARADO MD 07/17/2022 4:05 PM EDT Ana María Ferguson HISTORICAL/NON ORDERABLE LABS Fi nal Result [facility] [address] * (ABNORMAL) THINPREP PAP (03/13/2021 3:49 PM EDT) Pathologist [facility] Clinical Information: NONE [facility]IV[facility] COMMENT SEE COMMENT [facility] Comment: EXPLANATORY NOTE: The Pap is a screening test for cervical cancer. It is not a diagnostic test and is subject to false negative and false positive results. It is most reliable when a satisfactory sample, regularly obtained, is submitted with relevant clinical findings and history, and when the Pap result is evaluated along with historic and current clinical information. Plant Anatomy Teacher : SEE COMMENT [facility] Comment: GSG, CT(ASCP) CT screening location: [address] [address] General Categorization: EPITHELIAL CELL ABNORMALITY(A) [facility] Interpretation/R esult: Atypical Squamous Cells of Undetermined Significance (ASC-US)(A) [facility] LMP: NONE [facility] PATHOLOGIST: SEE COMMENT [facility] Comment: Vira Rai M.D., Board Certified in Anatomic and Clinical Pathology (electronic signature) Consulting Pathologist [facility] Pathology [phone] Prev. BX: NONE [facility]IV[facility] Prev. PAP: NONE [facility]IV[facility] SOURCE: NONE [facility] Statement Of Adequacy: SEE COMMENT [facility] Comment: Satisfactory for evaluation. Endocervical/transformation zone component absent. 03/13/2021 3:49 PM EDT Orly Henry MD LAB PATHOLOGY ORDERABLES Final Result [facility] [address] * Colonoscopy (11/04/2018) Historical Provider HEALTH MAINTENANCE Final Result from Last 3 Months or Most Recently Relevant to Health Maintenance Insurance [address] [place] [phone] [facility] NAVIGATE DENTAL - HSN PARTIAL (MEDICAID) Care Teams Talking Books Library Clerk Relationship Specialty Start Date End Date Orly Henry MD [address] [place] [address] PCP - General Family Medicine 11/10/20
--- OUTSIDE RECORDS SUMMARY | 2025-07-27 09:19 | XMS_ITS | Encounter Summary ---
Author Organization [facility] Address [address] [place] [address] 7t [place] [address] Care Team Providers Care Home Help Aide Name Role Phone Orly Henry MD Primary Care Provider [phone] Encounter Details Date Type Department Care Team (Late Contact Info) Description 08/07/2023 Orders Only [facility] MEDICINE [address] [place], [place] [phone] Provider, Historical, Social History Tobacco Use Types Packs/Day Years [...] EST Office Visit [facility] ADULT DENTAL [address] [place], [place] [phone] Zeeshan, Mary [address] [place], [place] [phone] documented as of this encounter Procedures Procedure Name Priority Date/Time Associated Diagnosis Comments HM COLONOSCOPY Routine 11/04/2018 documented in this encounter Results * Hm Colonoscopy (11/04/2018) Historical Provider HEALTH MAINTENANCE Final Result documented in this encounter Visit Diagnoses Not on filedocumented in this encounter Care Teams Home Help Aide Relationship Specialty Start Date End Date Orly Henry MD [address] [place] [address] PCP - General Family Medicine 11/10/20 documented as of this encounter
--- OUTSIDE RECORDS SUMMARY | 2025-07-27 09:19 | XMS_ITS | Encounter Summary ---
Author Organization [employer] Address [address] [place] [address] 7t [place] [address] Care Team Providers Care Inside Upholsterer Name Role Phone Orly Henry MD Primary Care Provider [phone] Encounter Details Date Type Department Care Team (Latest Contact Info) Description 08/16/2022 Abstract [facility] CONVERSIONS Dental, Provider, DDS Social History [...] Description 10/05/2025 3:00 PM EST Office Visit [facility] ADULT DENTAL [address] [place] [address] Zeeshan, Mary [address] [place] [address] documented as of this encounter Visit Diagnoses Not on filedocumented in this encounter Care Teams Inside Upholsterer Relationship Specialty Start Date End Date Orly Henry MD [address] [place] [address] PCP - General Family Medicine 11/10/20 documented as of this encounter
--- OUTSIDE RECORDS SUMMARY | 2025-07-27 09:19 | XMS_ITS | Encounter Summary ---
Author Organization [employer] Address [address] [facility] 7t [place] [address] Care Team Providers Care Parts Clerk Plant Maintenance Name Role Phone Orly Henry MD Primary Care Provider Reason for Visit * Reason Onset Date Comments rs appt 09/17/2023 Encounter Details Date Type Department Care Team ([facility] st Contact Info) Description 09/17/2023 Telephone [facility] ADULT DENTAL [address] [place] [address] Hoang Haywood, ZENA [address] [place] [address] rs appt Social History Tobacco Use Types [...] Description 10/05/2025 3:00 PM EST Office Visit [facility] ADULT DENTAL [address] [place] [address] Zeeshan, Mary [address] [place] [address] documented as of this encounter Visit Diagnoses Not on filedocumented in this encounter Additional Health Concerns Assessment Noted Time PHQ-9 Depression Total Score: 0 08/12/20 23 1:18 PM EDT documented as of this encounter Care Teams Parts Clerk Plant Maintenance Relationship Specialty Start Date End Date Orly Henry MD [address] [place] [address] PCP - General Family Medicine 11/10/20 documented as of this encounter
== END 2025-07-27 09:14 | disposition home or self-care (01) ==
LOC: HO.HOS 08:59
PROVIDERS: PCP General Practice; Visit Provider Physician Assistant
DX: M17.11 Unilateral primary osteoarthritis, right knee (principal)
CPT/HCPCS: 20610

== ENCOUNTER → 2025-07-27 08:58 | Outpatient (BNVA) | payer OTHER, SELFPAY | PROVIDERS: PCP General Practice; Visit Provider Physician Assistant | DX: M17.11 Unilateral primary osteoarthritis, right knee (principal) | CPT/HCPCS: 20610; J7318 ==

== ENCOUNTER 2025-07-30 13:10 | Outpatient (REF) | payer OTHER, SELFPAY ==
--- NOTE | ~2025-07-30 | US_ITS ---
EXAMINATION: US LOWER EXTREMITY VENOUS (REFLUX EXAM), BILATERAL CLINICAL INFORMATION: Varicose veins of the right lower extremity with inflammation COMPARISON: None. TECHNIQUE: Color flow triplex imaging and compression Doppler was performed to evaluate both the deep and the superficial systems bilaterally. To evaluate the superficial system, the examination was performed in the upright position. Color-flow Doppler ultrasound and compression ultrasound were utilized. In addition, maneuvers were utilized to demonstrate reflux. FINDINGS: 1. DEEP VENOUS ULTRASOUND OF THE RIGHT LOWER EXTREMITY: Common Femoral Vein: Compressible, normal respiratory variation and augmented flow. Femoral Vein: Compressible, normal color flow and augmentation. Popliteal Vein: Compressible, normal augmentation. Deep Reflux: There is no evidence of reflux in the deep system in either the common femoral vein, superficial femoral or the popliteal vein. 2. SUPERFICIAL ULTRASOUND WITH DOPPLER OF RIGHT LOWER EXTREMITY: GREAT SAPHENOUS VEIN: Saphenofemoral Junction: 0.4 cm; Reflux: 0 ms Proximal Thigh: 0.2 cm; Reflux: 0 ms Mid Thigh: Not demonstrated Distal Thigh: 0.2 cm; Reflux: 0 ms At Knee: 0.1 cm; Reflux: 0 ms Below Knee/Proximal Calf: 0.1 cm; Reflux: 0 ms Mid Calf: 0.1 cm; Reflux: 2144 ms Ankle/Distal Calf: 0.2 cm; Reflux: 1800 ms Lateral accessory GREAT SAPHENOUS VEIN: Saphenofemoral Junction: 0.2 cm; Reflux: 0 ms Mid Thigh: Not demonstrated SMALL SAPHENOUS VEIN: Drainage: Popliteal vein Saphenopopliteal Junction: 0.3 cm; Reflux: 0 ms Mid calf: 0.3 cm; Reflux: 0 ms Distal: 0.2 cm; Reflux: 0 ms VEIN OF GIACOMINI: Size: NA cm Reflux: NA ms PERFORATORS: Location: Greater saphenous vein, mid calf Size: 0.3 cm Reflux: 0 ms Location: Greater saphenous vein, proximal calf Size: 0.3 cm Reflux: 0 ms VARICOSITIES > 3mm: Location: Small saphenous vein, proximal Size: 0.3 cm Reflux: Greater than 2000 ms 3. DEEP VENOUS ULTRASOUND OF THE LEFT LOWER EXTREMITY: Common Femoral Vein: Compressible, normal respiratory variation and augmented flow. Femoral Vein: Compressible, normal color flow and augmentation. Popliteal Vein: Compressible, normal augmentation. Deep Reflux: There is no evidence of reflux in the deep system in either the common femoral vein, superficial femoral or the popliteal vein. 4. SUPERFICIAL ULTRASOUND WITH DOPPLER OF LEFT LOWER EXTREMITY: GREAT SAPHENOUS VEIN: Saphenofemoral Junction: 0.4 cm; Reflux: 0 ms Proximal Thigh: 0.1 cm; Reflux: 0 ms Mid Thigh: 0.1 cm; Reflux: 0 ms Distal Thigh: 0.1 cm; Reflux: Greater than 2100 ms At Knee: 0.2 cm; Reflux: Greater than 2600 ms Below Knee/Proximl calf: 0.1 cm; Reflux: Greater than 2300 ms Mid Calf: 0.1 cm; Reflux: Greater than 2100 ms Distal Calf/Ankle: 0.2 cm; Reflux: 1900 ms Lateral GREAT SAPHENOUS VEIN: Saphenofemoral Junction: 2.1 cm; Reflux: 0 ms SMALL SAPHENOUS VEIN: Drainage: Popliteal vein Saphenopopliteal Junction: 0.3 cm; Reflux: 0 ms Mid calf: 0.2 cm; Reflux: 0 ms Distal calf: 0.1 cm; Reflux: 0 ms VEIN OF GIACOMINI: Size: NA Reflux: NA PERFORATORS: Location: Greater saphenous vein, mid calf Size: 0.1 cm Reflux: 0 ms Location: Greater saphenous vein, distal calf Size: 0.2 cm Reflux: 0 ms VARICOSITIES > 3mm: Location: None Imaged US/US venous duplex LE IMPRESSION: Right: Venous incompetence is demonstrated in the greater saphenous vein mid calf and ankle region. There is a refluxing small saphenous vein related varicosity Left: Venous incompetence with reflux in greater saphenous vein from above the knee to the ankle Electronically signed by: Franc Renee MD 07/30/2025 02:52 PM EDT
--- OUTSIDE RECORDS SUMMARY | 2025-07-30 13:31 | XMS_ITS | Encounter Summary ---
Author Organization [employer] [facility] Address [address] [place] [address] 7t [place] [address] Care Team Providers Care Pneumatic Tool Repairer Name Role Phone Orly Henry MD Primary Care Provider [phone] Encounter Details Date Type Department Care Team (Late Contact Info) Description 08/07/2023 Orders Only [facility] MEDICINE [address] [place], [place] [phone] Provider, Historical, Social History Tobacco Use Types [...] 10/05/2025 3:00 PM EST Office Visit [facility] ADULT DENTAL [address] [place], [place] [phone] Zeeshan, Mary [address] [place], [place] [phone] documented as of this encounter Procedures Procedure Name Priority Date/Time Associated Diagnosis Comments HM COLONOSCOPY Routine 11/04/2018 documented in this encounter Results * Hm Colonoscopy (11/04/2018) Historical Provider HEALTH MAINTENANCE Final Result documented in this encounter Visit Diagnoses Not on filedocumented in this encounter Care Teams Pneumatic Tool Repairer Relationship Specialty Start Date End Date Orly Henry MD [address] [place] [address] PCP - General Family Medicine 11/10/20 documented as of this encounter
--- OUTSIDE RECORDS SUMMARY | 2025-07-30 13:31 | XMS_ITS | Encounter Summary ---
Author Organization [employer] Address [address] [place] [address] 7t [place] [address] Care Team Providers Care Director Corporate Compliance Name Role Phone Orly Henry MD Primary Care Provider [phone] Encounter Details Date Type Department Care Team (Latest Contact Info) Description 03/27/2019 Abstract [facility] CONVERSIONS Dental, Provider, DDS Social History Tobacco [...] Description 10/05/2025 3:00 PM EST Office Visit [facility] ADULT DENTAL [address] [place] [address] Zeeshan, Mary [address] [place] [address] documented as of this encounter Visit Diagnoses Not on filedocumented in this encounter Care Teams Director Corporate Compliance Relationship Specialty Start Date End Date Orly Henry MD [address] [place] [address] PCP - General Family Medicine 11/10/20 documented as of this encounter
--- OUTSIDE RECORDS SUMMARY | 2025-07-30 13:31 | XMS_ITS | Encounter Summary ---
Author Organization [employer] Address [address] [place] [address] 7t [place] [address] Care Team Providers Care Automobile Club Membership Sales Agent Name Role Phone Orly Henry MD Primary Care Provider [phone] Encounter Details Date Type Department Care Team (Latest Contact Info) Description 08/16/2022 Abstract [facility] CONVERSIONS Dental, Provider, DDS Social History [...] Description 10/05/2025 3:00 PM EST Office Visit [facility] ADULT DENTAL [address] [place] [address] Zeeshan, Mary [address] [place] [address] documented as of this encounter Visit Diagnoses Not on filedocumented in this encounter Care Teams Automobile Club Membership Sales Agent Relationship Specialty Start Date End Date Orly Henry MD [address] [place] [address] PCP - General Family Medicine 11/10/20 documented as of this encounter
--- OUTSIDE RECORDS SUMMARY | 2025-07-30 13:31 | XMS_ITS | Clinical Summary ---
Author Organization [employer] Address [address] [facility] 7t [place] [address] Care Team Providers Care Culinary Assistant Name Role Phone Orly Henry MD Primary Care Provider [phone] Allergies No known active allergies Medications PARoxetine [...] Type Department Care Team Description 06/08/2025 Telephone [facility] MEDICINE [address] [place], [place] [phone] Orly Henry MD Durable Medical Equipment 06/02/2025 6:40 PM EDT Office Visit [facility] [address] [place], [place] [phone] Name, MD Hieu Venous insufficiency of both lower extremities (Primary Dx) 06/02/2025 Travel 06/02/2025 Telephone [facility] MEDICINE [address] [place] [address] Orly Henry MD Nurse Triage [...] Description 10/05/2025 3:00 PM EST Office Visit [facility] ADULT DENTAL [address] [place] [address] Zeeshan, Mary [address] [place] [address] Health Maintenance Due Date Last Done Comments [...] PM EST Narrative 12/18/2024 1:47 PM EST [facility] [address] [place] [address] Mammography Report Signed Patient: Roro Lucas MR#: [id number] 235 : 1965 Acct:[id number] Age/Sex: 59 / F ADM Date: 12/18/24 Loc: .MAMMO Attending Dr: Orly Henry MD Ordering Physician: Orly Henry Results: 2Benign F indings Date of Service: 12/18/24 Follow Up: 1 Year From Orig ina Mammogram Procedure(s): MM tomosynthesis diagnostic BI Accession Number(s): [id number] cc: Orly Henry EXAMINATION: MM DIAGNOSTIC DIGITAL [...] 12/18/24 1344 DD/ 1305 TD/TT: 12/18/24 1322 Pipeline Operator: Procedure Note Donotuseinterpreter, Image - 12/18/2024 [facility]'s [address] [place] [address] Mammography Report Signed Patient: Roro Lucas [facility]#: [id number] 235 : 1965Acct:[id number] Age/Sex: 59 / FADM Date: 12/18/24 Loc: HO.MAMMO Attending Dr: Orly Henry MD Ordering Physician: Patricia Henryults: 2Benign F indings Date of Service: 12/18/24Follow Up: 1 Year From Orig ina Mammogram Procedure(s): MM tomosynthesis diagnostic BI Accession Number(s): [id number] cc: Orly Henry EXAMINATION: MM DIAGNOSTIC DIGITAL [...] 12/18/24 1344 DD/ 1305 TD/TT: 12/18/24 1322 Pipeline Operator: Orly Henry MD IMG BI PROCEDURES Edited Resul t - Final * Hepatitis C Antibody (08/03/2022 4:56 PM EDT) Hepatitis C Antibody Nonreactive Nonreactive [facility] Comment: Antibodies to HCV not detected; does not exclude early acute HCV infection. Hepatitis B Core Antibody Nonreactive Nonreactive [facility] HIV AB/AG Nonreactive Nonreactive [facility] [...] of detection of this assay. The Paige Room Service Attendant HIV Ag/Ab Combo assay result and supplemental assay results should be interpreted in conjunction with the patient's clinical presentation, history and other laboratory results. If the results are inconsistent with clinical evidence, additional testing is suggested to confirm the result. 08/03/2022 4:56 PM EDT us Ana María Ferguson HISTORICAL/NON ORDERABLE LABS Fi nal Result [facility] [address] * HPV E6/E7 RFLX PHILIPP 16 18/45 (07/17/2022 4:05 PM EDT) HPV 16 RNA [facility]NP [facility] HPV 18/45 RNA [facility] HPV E6 E7 ADD [facility] HPV mRNA E6/E7 rflx Not Detected Not Detected [facility] Comment: Methodology: Batch Tester-Mediated Amplification This assay detects E6/E7 viral messenger RNA (mRNA) from 14 high-risk HPV types (16,18,31,33,35,39,45,51,52,56,58,59,66,68). Cervical sources are required for HPV testing. If a vaginal source from a patient who has had a total hysterectomy with removal of cervix was submitted, please contact the testing laboratory for alternative testing options. For additional information, please refer to http://education.[employer]/faq/OZJ302t0 (This link if provided for information/ educational purposes only.) THIS TEST WAS PERFORMED AT: [employer] [address] [place] [address],[place] [address] CHRISTINE ALVARADO MD 07/17/2022 4:05 PM EDT Ana María Ferguson HISTORICAL/NON ORDERABLE LABS Fi nal Result [facility] [address] * (ABNORMAL) THINPREP PAP (03/13/2021 3:49 PM EDT) Pathologist [facility] Clinical Information: NONE GIVEN [facility] [...] along with historic and current clinical information. Microfabrication Engineer Manager : SEE COMMENT [facility] Comment: GSG, CT(ASCP) CT screening location: [address] [address] General Categorization: EPITHELIAL CELL ABNORMALITY(A) [facility] Interpretation/R esult: Atypical Squamous Cells of Undetermined Significance (ASC-US)(A) [facility] LMP: NONE GIVEN [facility] PATHOLOGIST: SEE COMMENT [facility] Comment: Vira Rai M.D., Board Certified in Anatomic and Clinical Pathology (electronic signature) Consulting Pathologist [facility] [phone] Prev. BX: NONE GIVEN [facility] Prev. PAP: NONE GIVEN [facility] SOURCE: NONE GIVEN [facility] Statement Of Adequacy: SEE COMMENT [facility] Comment: Satisfactory for evaluation. Endocervical/transformation zone component absent. 03/13/2021 3:49 PM EDT Orly Henry MD LAB PATHOLOGY ORDERABLES Final Result [facility] [address] * Colonoscopy (11/04/2018) Historical Provider HEALTH MAINTENANCE Final Result from Last 3 Months or Most Recently Relevant to Health Maintenance Insurance [address] [place] [id number] [facility] NAVIGATE DENTAL - HSN PARTIAL (MEDICAID) Care Teams Culinary Assistant Relationship Specialty Start Date End Date Orly Henry MD [address] [place] [address] PCP - General Family Medicine 11/10/20
--- OUTSIDE RECORDS SUMMARY | 2025-07-30 13:31 | XMS_ITS | Encounter Summary ---
Author Organization [employer] Address [address] [place] [address] 7 [place] [address] Care Team Providers Care Wood Gouger Name Role Phone Orly Henry MD Primary Care Provider [phone] Encounter Details Date Type Department Care Team ([facility] Contact Info) Description 09/04/2023 Orders Only [facility] MEDICINE [address] [place] [phone] Orly Henry MD [address] [place], [place] [phone] Postmenopausal bleeding (Primary Dx); Endometrial thickening on [...] Description 10/05/2025 3:00 PM EST Office Visit [facility] ADULT DENTAL [address] [place] [address] Mayr Byers [address] [place] [address] documented as of this encounter Procedures Procedure Name Priority Date/Time Associated Diagnosis Comments BI MAMMOGRAM DIAGNOSTIC TOMOSYNTHESIS BILATERAL Routine 09/19/2023 3:55 PM EDT documented in this encounter Results * BI Mammogram Diagnostic Tomosynthesis Bilateral (09/19/2023 3:55 PM EDT) Anatomical Region Laterality Modality Breast Bilateral Mammography 09/19/2023 3:55 PM EDT Narrative 09/19/2023 4:17 PM EDT [facility] [address] [place] [address] Mammography Report Signed Patient: Roro Lucas MR#: [id number] 235 : 1965 Acct:[id number] Age/Sex: 58 / F ADM Date: 09/19/23 Loc: HO.MAMMO Attending Dr: Orly Henry MD Ordering Physician: Orly Henry Results: 3.12MProb ably Benign Finding - 12 month F/U Suggested Date of Service: 09/19/23 Follow Up: 12 month diagnos tic follow up Procedure(s): MM tomosynthesis diagnostic BI Accession Number(s): [id number] cc: Orly Henry EXAMINATION: MM DIAGNOSTIC DIGITAL [...] in OV> 09/19/23 1613 DD/ 1555 TD/TT: Medical Cash Poster: Procedure Note Donotuseinterpreter, Image - 09/19/2023 [facility]'s [address] [place] [address] Mammography Report Signed Patient: Roro Lucas [facility]#: [id number] 235 : 1965Acct:[id number] Age/Sex: 58 / FADM Date: 09/19/23 Loc: MAMMO Attending Dr: Orly Henry MD Ordering Physician: Patricia Henryults: 3.12MProb ably Benign Finding - 12 month F/U Suggested Date of Service: 09/19/23Follow Up: 12 month diagnos tic follow up Procedure(s): MM tomosynthesis diagnostic BI Accession Number(s): [id number] cc: Orly Henry EXAMINATION: MM DIAGNOSTIC DIGITAL [...] by Jerome Kinsey MD in OV> 09/19/23 5959 DD/ 9775 TD/TT: Medical Cash Poster: us Orly Henry MD IMG BI PROCEDURES Final Result documented in this encounter Visit Diagnoses Diagnosis Postmenopausal bleeding- Primary Endometrial thickening on ultrasound documented in this encounter Additional Health Concerns Assessment Noted Time PHQ-9 Depression Total Score: 0 08/12/20 23 1:18 PM EDT documented as of this encounter Care Teams Wood Gouger Relationship Specialty Start Date End Date Orly Henry MD [address] [place] [address] PCP - General Family Medicine 11/10/20 documented as of this encounter
--- OUTSIDE RECORDS SUMMARY | 2025-07-30 13:31 | XMS_ITS | Encounter Summary ---
Author Organization [employer] Address [address] [facility] 7t [place] [address] Care Team Providers Care Market Research Interviewer Name Role Phone Orly Henry MD Primary Care Provider [phone] Reason for Visit * Reason Onset Date Comments rs appt 09/17/2023 Encounter Details Date Type Department Care Team ([facility] st Contact Info) Description 09/17/2023 Telephone [facility] ADULT DENTAL [address] [place] [address] Hoang Haywood, ZENA [address] [place] [address] rs appt Social History Tobacco Use Types [...] Description 10/05/2025 3:00 PM EST Office Visit [facility] ADULT DENTAL [address] [place] [address] Zeeshan, Mary [address] [place] [address] documented as of this encounter Visit Diagnoses Not on filedocumented in this encounter Additional Health Concerns Assessment Noted Time PHQ-9 Depression Total Score: 0 08/12/20 23 1:18 PM EDT documented as of this encounter Care Teams Market Research Interviewer Relationship Specialty Start Date End Date Orly Henry MD [address] [place] [address] PCP - General Family Medicine 11/10/20 documented as of this encounter
--- OUTSIDE RECORDS SUMMARY | 2025-07-30 13:31 | XMS_ITS | Encounter Summary ---
Author Organization [employer] Address [address] [place] [address] 7t [place] [address] Care Team Providers Care Clean Out Driller Name Role Phone Orly Henry MD Primary Care Provider [phone] Encounter Details Date Type Department Care Team (Latest Contact Info) Description 08/14/2021 Abstract [facility] CONVERSIONS Dental, Provider, DDS Social [...] Description 10/05/2025 3:00 PM EST Office Visit [facility] ADULT DENTAL [address] [place] [address] Zeeshan, Mary [address] [place] [address] documented as of this encounter Visit Diagnoses Not on filedocumented in this encounter Care Teams Clean Out Driller Relationship Specialty Start Date End Date Orly Henry MD [address] [place] [address] PCP - General Family Medicine 11/10/20 documented as of this encounter
== END 2025-07-30 13:11 | disposition home or self-care (01) ==
LOC: HO.US 13:10
PROVIDERS: PCP General Practice; Visit Provider Surgery Vascular Surgery
DX: I83.11 Varicose veins of right lower extremity with inflammation (principal)
CPT/HCPCS: 93970

== ENCOUNTER → 2025-07-30 13:12 | Outpatient (BNV) | payer OTHER, SELFPAY | PROVIDERS: PCP General Practice; Visit Provider Radiology Diagnostic Radiology | DX: I83.11 Varicose veins of right lower extremity with inflammation (principal) | CPT/HCPCS: 93970 ==

== ENCOUNTER 2025-09-07 15:08 | Outpatient (AMB) | payer OTHER, SELFPAY ==
--- NOTE | 2025-09-07 15:10 | MHC.OFFVIS ---
Intake Visit Reasons: follow up [facility] 07/30/25 Intake Note: Patient presents for follow up [facility]. No complaints. Accompanied by: Self / Same As Patient Allergies No Known Allergies Allergy (Verified 09/07/25 15:11) pt states no food/medication a Allergy (Unknown, Uncoded 01/01/24 07:36) Unknown HPI HPI follow up [facility] 07/30/25: Details: Very pleasant 60-year-old female presents for follow-up regarding venous insufficiency she states that she has had treatment for her knee and also new footwear which has significantly improved her legs. She had gel injections of the right knee performed by our orthopedic team. In general appears to be doing relatively well from that. She now presents for follow-up with venous insufficiency testing. [facility] Medical History Renal calculi Surgical History Hx of tubal ligation H/O abdominoplasty Family History Mother Fatty liver Sister High cholesterol Maternal Grandfather Stroke Brother Psoriasis Social History Household Members Other:: daughter Housing Other:: daughter Alcohol intake: never Patient Tobacco Use Status: Never used Tobacco Current occupational status: employed Current occupation: [employer]/rt handed Sexual orientation: Straight/Heterosexual Gender identity: Female Review of Systems Const All systems reviewed & are unremarkable except as noted in HPI and below Reports no additional complaints ENT Reports Normal hearing present Card Denies chest pain, Denies chest pain at rest, Denies chest pain with activity and Denies pedal edema Resp Denies cough GI Denies abdominal pain Musc Denies abnormal gait, Denies muscle cramps and Denies radiating pain into limb Skin/Breast Denies skin ulcer and Denies wounds Neuro Reports Normal hearing present and Denies abnormal gait Psych Reports no additional complaints Physical Exam Const General: cooperative, healthy appearing and comfortable Orientation/consciousness: oriented to person, oriented to place and oriented to time HEENT Head: Yes normal to inspection Neck Neck: Yes normal visual inspection Carotids: no bruits Chest Chest palpation & inspection: normal inspection of the chest Resp Effort & Inspection: normal respiratory effort and able to speak in complete sentences Auscultation: clear to auscultation bilaterally, no crackles, no rales, no rhonchi and no wheezes Cardio Rate: regular rate Rhythm: regular rhythm Heart sounds: S1 normal heart sound present and S2 normal heart sound present Bruits: no carotid bruits Peripheral pulses: Peripheral pulses 2+ throughout GI Inspection: Yes normal to inspection Skin Wounds: no wounds Hair: normal Neuro General: oriented to person, oriented to place and oriented to time Cranial nerves: Yes CN's II-XII intact bilaterally and Yes Normal hearing present Cognition (Neuro): normal cognition Motor exam (neuro): 5/5 motor strength present throughout Extrem Other: venous exam: +1 edema General: No clubbing, No cyanosis and Yes edema Psych Appearance: grossly normal Mental Status: mental status grossly normal Speech and movement: Normal speech and movement present Results Reviewed Results Reviewed: Brief summary of venous insufficiency testing is as follows: right great saphenous vein: Positive at calf only but vein small in caliber right small saphenous vein: negative right accessory vein: none present left great saphenous vein: Positive left knee and below but once again vein extremely small in caliber left small saphenous vein: negative left accessory vein: none present Please note there is no evidence of any venous aneurysms or significant tortuosity Assessment & Plan Assessment & Plan (1) Varicose veins of right lower extremity with inflammation: Code(s): I83.11 - Varicose veins of right lower extremity with inflammation Category: Medical Plan: In short patient does have some mild venous reflux. Unfortunately her veins are significantly diminished in caliber. I do not believe that that is going to be the majority of her issues in terms of his swelling. She does appear to be doing significantly better with orthopedic knee treatment. We did discuss the findings with her we did discuss continued conservative measures including compression, elevation and exercise. She will follow up with us on an as-needed basis. Thank you for allowing us to assist in her care. Coding Level of Care Code Est Pt Level 4 (77025) Diagnoses Varicose veins of right lower extremity with inflammation I83.11
--- OUTSIDE RECORDS SUMMARY | 2025-09-07 18:21 | XMS_ITS | Encounter Summary ---
Author Organization [employer] Address [address] [place] [address] 7 [place] [address] Care Team Providers Care String Laster Name Role Phone Orly Henry MD Primary Care Provider [phone] Encounter Details Date Type Department Care Team (Latest Contact Info) Description 08/16/2022 Abstract [facility] CONVERSIONS Dental, Provider, DDS Social History [...] Description 10/05/2025 3:00 PM EST Office Visit [facility] ADULT DENTAL [address] [place] [address] Zeeshan, Mary [address] [place] [address] documented as of this encounter Visit Diagnoses Not on filedocumented in this encounter Care Teams String Laster Relationship Specialty Start Date End Date Orly Henry MD [address] [place] [address] PCP - General Family Medicine 11/10/20 documented as of this encounter
--- OUTSIDE RECORDS SUMMARY | 2025-09-07 18:21 | XMS_ITS | Encounter Summary ---
Author Organization [employer] Address [address] [place] [address] 7 [place] [address] Care Team Providers Care Glost Tile Sorter Name Role Phone Orly Henry MD Primary Care Provider [phone] Encounter Details Date Type Department Care Team (Latest Contact Info) Description 08/14/2021 Abstract [facility] CONVERSIONS Dental, Provider, DDS Social [...] Description 10/05/2025 3:00 PM EST Office Visit [facility] ADULT DENTAL [address] [place] [address] Zeeshan, Mary [address] [place] [address] documented as of this encounter Visit Diagnoses Not on filedocumented in this encounter Care Teams Glost Tile Sorter Relationship Specialty Start Date End Date Orly Henry MD [address] [place] [address] PCP - General Family Medicine 11/10/20 documented as of this encounter
--- OUTSIDE RECORDS SUMMARY | 2025-09-07 18:21 | XMS_ITS | Clinical Summary ---
Author Organization [employer] Address [address] [place] [address] 7t h Floor [address] Care Team Providers Care Warehouse Insulation Worker Name Role Phone Orly Henry MD Primary Care Provider [phone] Allergies No known active allergies Medications PARoxetine [...] for rash. 45 g 2 5 Active amoxicillin (Amoxil) 500 MG capsule Take 1 capsule (500 mg) by mouth every 8 (eight) hours for 7 days. 21 capsule 5 025 acetaminophen (Tylenol) 500 MG tablet Take 1 tablet (500 mg) by mouth every 8 (eight) hours if needed for mild pain or moderate pain for up to 5 days. 15 tablet 5 025 chlorhexidine (Peridex) 0.12 % solution Use 15 mL in the mouth or throat if needed in the morning, at noon, and at bedtime (PROPHYLAXIS) for up to 5 days. 110 mL 5 025 Active Problems Problem Noted Date [...] Encounters Date Type Department Care Team Description 08/27/2025 11:00 AM EDT Office Visit [facility] ADULT DENTAL [address] [place] [address] Hoang Haywood DMD 07/30/2025 Orders Only [facility] External Provider, [facility] 06/08/2025 Telephone [facility] [address] [place] [address] Orly Henry MD Durable Medical Equipment from Last 3 Months Immunizations Immunization Administration [...] your housing situation today? I have sebastian gemma 09/21/[address] you li [...] the past 12 months, has t he [employer], gas, oil or water company threatened to [...] Description 10/05/2025 3:00 PM EST Office Visit [facility] [address] [place] [address] Zeeshan, Mary [address] [place] [address] Health Maintenance Due Date Last Done Comments CT Colonography 1967 FIT DNA/Cologuard 1967 FIT 1967 FOBT 1967 Sigmoidoscopy 1967 Disability Screening 1967 Alcohol/Substance Use Screening 1979 Hepatitis B Vaccines (1 of 3 - 19+ 3-dose series) 1986 Pneumococcal Vaccine: 50+ Years (1 of 1 - PCV) 2017 Cervical Cancer Screening 03/13/2024 Pap Smear 03/13/2024 03/13/2021 HPV/Cotest 07/17/2025 07/17/2022, 07/02, 03/13/2021 Dental Oral Exam 07/23/2025 01/22/2025, , 07/14/2024 Dental Prophylaxis 07/23/2025 01/22/2025, 07/14/2024 COVID-19 Vaccine ( season) 2025 12/05/2021, 04/20/2021, 03/30/2021 Influenza Vaccine (#1) 2025 2, 11/22/2021, 08/12/2020, Additional history exists SDOH Screening 09/21/2025 09/21/2024 DTaP/Tdap/Td Vaccines (2 - Td or Tdap) 10/14/2025 10/14/2015 Mammogram 12/18/2025 12/18/2024, 1008/2023, 12/25/2022, Additional history exists Dental X-Ray: Bitewings 01/23/2026 01/22/20, 07/14/2024, 08/23/2022 Depression Screening 01/25/2026 01/25/2025, 01/25/20 Tobacco Screening 08/27/2026 08/27/2025 Dental X-Ray: Full Mouth 07/15/2027 07/14/2024, 07/0 08/2019 Colonoscopy 11/04/2028 11/04/2018 Colorectal Cancer Screening 11/04/2028 [...] Procedure Name Priority Date/Time Associated Diagnosis Comments CASE PRESENTATION, DETAILED AND EXTENSIVE TREATMENT PLANNING Routine 08/27/2025 11:00 AM EDT INTRAORAL - PERIAPICAL FIRST RADIOGRAPHIC IMAGE Routine 08/27/2025 11:00 AM EDT PALLIATIVE (EMERGENCY) TREATMENT OF DENTAL PAIN - MINOR PROCEDURE Routine 08/27/2025 11:00 AM EDT VASC US LOWER EXTREMITY VENOUS DUPLEX BILATERAL Routine 07/30/2025 1:38 PM EDT PROPHYLAXIS - ADULT Routine 01/22/2025 3 :00 [...] Recently Relevant to Health Maintenance Results * [facility] US Lower Extremity Venous Duplex Bilateral (07/30/2025 1:38 PM EDT) 07/30/2025 1:38 PM EDT Narrative [facility] IMAGING - 07/30/2025 2:54 PM EDT [place] [address] Ultrasound Report Signed Patient: Roro Lucas MR#: [id number] 235 : 1965 Acct:[id number] Age/Sex: 60 / F ADM Date: 07/30/25 Loc: HO.US Attending Dr: Bo Bee MD Ordering Physician: Bo Bee MD Date of Service: 07/30/25 Procedure(s): US venous duplex LE BI Accession Number(s): [id number] cc: Orly Henry; Bo Bee MD EXAMINATION: US LOWER EXTREMITY VENOUS (REFLUX EXAM), BILATERAL CLINICAL INFORMATION: Varicose veins of the right lower extremity with inflammation COMPARISON: None. TECHNIQUE: Color flow triplex imaging and compression Doppler was performed to evaluate both the deep and the superficial systems bilaterally. To evaluate the superficial system, the examination was performed in the upright position. Color-flow Doppler ultrasound and compression ultrasound were utilized. In addition, maneuvers were utilized to demonstrate reflux. FINDINGS: 1. DEEP VENOUS ULTRASOUND OF THE RIGHT LOWER EXTREMITY: Common Femoral Vein: Compressible, normal respiratory variation and augmented flow. Femoral Vein: Compressible, normal color flow and augmentation. Popliteal Vein: Compressible, normal augmentation. Deep Reflux: There is no evidence of reflux in the deep system in either the common femoral vein, superficial femoral or the popliteal vein. 2. SUPERFICIAL ULTRASOUND WITH DOPPLER OF RIGHT LOWER EXTREMITY: GREAT SAPHENOUS VEIN: Saphenofemoral Junction: 0.4 cm; Reflux: 0 ms Proximal Thigh: 0.2 cm; Reflux: 0 ms Mid Thigh: Not demonstrated Distal Thigh: 0.2 cm; Reflux: 0 ms At Knee: 0.1 cm; Reflux: 0 ms Below Knee/Proximal Calf: 0.1 cm; Reflux: 0 ms Mid Calf: 0.1 cm; Reflux: 2144 ms Ankle/Distal Calf: 0.2 cm; Reflux: 1800 ms Lateral accessory GREAT SAPHENOUS VEIN: Saphenofemoral Junction: 0.2 cm; Reflux: 0 ms Mid Thigh: Not demonstrated SMALL SAPHENOUS VEIN: Drainage: Popliteal vein Saphenopopliteal Junction: 0.3 cm; Reflux: 0 ms Mid calf: 0.3 cm; Reflux: 0 ms Distal: 0.2 cm; Reflux: 0 ms VEIN OF GIACOMINI: Size: NA cm Reflux: NA ms PERFORATORS: Location: Greater saphenous vein, mid calf Size: 0.3 cm Reflux: 0 ms Location: Greater saphenous vein, proximal calf Size: 0.3 cm Reflux: 0 ms VARICOSITIES > 3mm: Location: Small saphenous vein, proximal Size: 0.3 cm Reflux: Greater than 2000 ms 3. DEEP VENOUS ULTRASOUND OF THE LEFT LOWER EXTREMITY: Common Femoral Vein: Compressible, normal respiratory variation and augmented flow. Femoral Vein: Compressible, normal color flow and augmentation. Popliteal Vein: Compressible, normal augmentation. Deep Reflux: There is no evidence of reflux in the deep system in either the common femoral vein, superficial femoral or the popliteal vein. 4. SUPERFICIAL ULTRASOUND WITH DOPPLER OF LEFT LOWER EXTREMITY: GREAT SAPHENOUS VEIN: Saphenofemoral Junction: 0.4 cm; Reflux: 0 ms Proximal Thigh: 0.1 cm; Reflux: 0 ms Mid Thigh: 0.1 cm; Reflux: 0 ms Distal Thigh: 0.1 cm; Reflux: Greater than 2100 ms At Knee: 0.2 cm; Reflux: Greater than 2600 ms Below Knee/Proximl calf: 0.1 cm; Reflux: Greater than 2300 ms Mid Calf: 0.1 cm; Reflux: Greater than 2100 ms Distal Calf/Ankle: 0.2 cm; Reflux: 1900 ms Lateral GREAT SAPHENOUS VEIN: Saphenofemoral Junction: 2.1 cm; Reflux: 0 ms SMALL SAPHENOUS VEIN: Drainage: Popliteal vein Saphenopopliteal Junction: 0.3 cm; Reflux: 0 ms Mid calf: 0.2 cm; Reflux: 0 ms Distal calf: 0.1 cm; Reflux: 0 ms VEIN OF GIACOMINI: Size: NA Reflux: NA PERFORATORS: Location: Greater saphenous vein, mid calf Size: 0.1 cm Reflux: 0 ms Location: Greater saphenous vein, distal calf Size: 0.2 cm Reflux: 0 ms VARICOSITIES > 3mm: Location: None Imaged US/US venous duplex LE BI IMPRESSION: Right: Venous incompetence is demonstrated in the greater saphenous vein mid calf and ankle region. There is a refluxing small saphenous vein related varicosity Left: Venous incompetence with reflux in greater saphenous vein from above the knee to the ankle Electronically signed by: Franc Renee MD 07/30/2025 02:52 PM EDT Dictated By: Franc Renee MD Signed By: <Electronically signed by Franc Renee MD in OV> 07/30/25 1452 DD/ 1338 TD/TT: 07/30/25 1411 Fire[employer] Diesel Locomotive: Procedure Note Donotuseinterpreter, Image - 07/30/2025 [place] [address] Ultrasound Report Signed Patient: Roro Lucas [facility]#: [id number] 235 : 1965Acct:[id number] Age/Sex: 60 / FADM Date: 07/30/25 Loc: . Attending Dr: Bo Bee MD Ordering Physician: Bo Bee MD Date of Service: 07/30/25 Procedure(s): US venous duplex LE BI Accession Number(s): [id number] cc: Orly Henry; Bo Bee MD EXAMINATION: US LOWER EXTREMITY VENOUS (REFLUX EXAM), BILATERAL CLINICAL INFORMATION: Varicose veins of the right lower extremity with inflammation COMPARISON: None. TECHNIQUE: Color flow triplex imaging and compression Doppler was performed to evaluate both the deep and the superficial systems bilaterally. To evaluate the superficial system, the examination was performed in the upright position. Color-flow Doppler ultrasound and compression ultrasound were utilized. In addition, maneuvers were utilized to demonstrate reflux. FINDINGS: 1. DEEP VENOUS ULTRASOUND OF THE RIGHT LOWER EXTREMITY: Common Femoral Vein: Compressible, normal respiratory variation and augmented flow. Femoral Vein: Compressible, normal color flow and augmentation. Popliteal Vein: Compressible, normal augmentation. Deep Reflux: There is no evidence of reflux in the deep system in either the common femoral vein, superficial femoral or the popliteal vein. 2. SUPERFICIAL ULTRASOUND WITH DOPPLER OF RIGHT LOWER EXTREMITY: GREAT SAPHENOUS VEIN: Saphenofemoral Junction: 0.4 cm; Reflux: 0 ms Proximal Thigh: 0.2 cm; Reflux: 0 ms Mid Thigh: Not demonstrated Distal Thigh: 0.2 cm; Reflux: 0 ms At Knee: 0.1 cm; Reflux: 0 ms Below Knee/Proximal Calf: 0.1 cm; Reflux: 0 ms Mid Calf: 0.1 cm; Reflux: 2144 ms Ankle/Distal Calf: 0.2 cm; Reflux: 1800 ms Lateral accessory GREAT SAPHENOUS VEIN: Saphenofemoral Junction: 0.2 cm; Reflux: 0 ms Mid Thigh: Not demonstrated SMALL SAPHENOUS VEIN: Drainage: Popliteal vein Saphenopopliteal Junction: 0.3 cm; Reflux: 0 ms Mid calf: 0.3 cm; Reflux: 0 ms Distal: 0.2 cm; Reflux: 0 ms VEIN OF GIACOMINI: Size: NA cm Reflux: NA ms PERFORATORS: Location: Greater saphenous vein, mid calf Size: 0.3 cm Reflux: 0 ms Location: Greater saphenous vein, proximal calf Size: 0.3 cm Reflux: 0 ms VARICOSITIES > 3mm: Location: Small saphenous vein, proximal Size: 0.3 cm Reflux: Greater than 2000 ms 3. DEEP VENOUS ULTRASOUND OF THE LEFT LOWER EXTREMITY: Common Femoral Vein: Compressible, normal respiratory variation and augmented flow. Femoral Vein: Compressible, normal color flow and augmentation. Popliteal Vein: Compressible, normal augmentation. Deep Reflux: There is no evidence of reflux in the deep system in either the common femoral vein, superficial femoral or the popliteal vein. 4. SUPERFICIAL ULTRASOUND WITH DOPPLER OF LEFT LOWER EXTREMITY: GREAT SAPHENOUS VEIN: Saphenofemoral Junction: 0.4 cm; Reflux: 0 ms Proximal Thigh: 0.1 cm; Reflux: 0 ms Mid Thigh: 0.1 cm; Reflux: 0 ms Distal Thigh: 0.1 cm; Reflux: Greater than 2100 ms At Knee: 0.2 cm; Reflux: Greater than 2600 ms Below Knee/Proximl calf: 0.1 cm; Reflux: Greater than 2300 ms Mid Calf: 0.1 cm; Reflux: Greater than 2100 ms Distal Calf/Ankle: 0.2 cm; Reflux: 1900 ms Lateral GREAT SAPHENOUS VEIN: Saphenofemoral Junction: 2.1 cm; Reflux: 0 ms SMALL SAPHENOUS VEIN: Drainage: Popliteal vein Saphenopopliteal Junction: 0.3 cm; Reflux: 0 ms Mid calf: 0.2 cm; Reflux: 0 ms Distal calf: 0.1 cm; Reflux: 0 ms VEIN OF GIACOMINI: Size: NA Reflux: NA PERFORATORS: Location: Greater saphenous vein, mid calf Size: 0.1 cm Reflux: 0 ms Location: Greater saphenous vein, distal calf Size: 0.2 cm Reflux: 0 ms VARICOSITIES > 3mm: Location: None Imaged US/US venous duplex LE BI IMPRESSION: Right: Venous incompetence is demonstrated in the greater saphenous vein mid calf and ankle region. There is a refluxing small saphenous vein related varicosity Left: Venous incompetence with reflux in greater saphenous vein from above the knee to the ankle Electronically signed by: Franc Renee MD 07/30/2025 02:52 PM EDT Dictated By: Franc Renee MD Signed By: <Electronically signed by Franc Renee MD in OV> 07/30/25 1452 DD/ 1338 TD/TT: 07/30/25 1411 Firer Diesel Locomotive: us [facility] External Provider CV VASC ULAR PROCEDURES Final Result [facility] IMAGING [address] [place] [address] * BI Mammogram Diagnostic Tomosynthesis Bilateral (12/18/2024 1:05 PM EST) Anatomical Region Laterality Modality Breast Bilateral Mammography 12/18/2024 1:05 PM EST Narrative 12/18/2024 1:47 PM EST [facility] [address] [place] [address] Mammography Report Signed Patient: Roro Lucas MR#: [id number] 235 : 1965 Acct:[id number] Age/Sex: 59 / F ADM Date: 12/18/24 Loc: HO.MAMMO Attending Dr: Orly Henry MD Ordering Physician: Orly Henry Results: 2Benign F indings Date of Service: 12/18/24 Follow Up: 1 Year From [facility] Mammogram Procedure(s): MM tomosynthesis diagnostic BI Accession Number(s): [id number] cc: Orly Henry EXAMINATION: MM DIAGNOSTIC DIGITAL [...] 12/18/24 1344 DD/ 1305 TD/TT: 12/18/24 1322 Fire[employer] Diesel Locomotive: Procedure Note Donotuseinterpreter, Image - 12/18/2024 [facility] [address] [place] [address] Mammography Report Signed Patient: Roro Lucas [facility]#: [id number] 235 : 1965Acct:[id number] Age/Sex: 59 / FADM Date: 12/18/24 Loc: HO.MAMMO Attending Dr: Orly Henry MD Ordering Physician: Patricia Henryults: 2Benign F indings Date of Service: 12/18/24Follow Up: 1 Year From [facility] Mammogram Procedure(s): MM tomosynthesis diagnostic BI Accession Number(s): [id number] cc: Orly Henry EXAMINATION: MM DIAGNOSTIC DIGITAL [...] 12/18/24 1344 DD/ 1305 TD/TT: 12/18/24 1322 Firer Diesel Locomotive: Orly Henry MD IMG BI PROCEDURES Edited Resul t - Final * Hepatitis C Antibody (08/03/2022 4:56 PM EDT) Hepatitis C Antibody Nonreactive Nonreactive [facility] [...] of detection of this assay. The [employer] HIV Ag/Ab Combo assay result and supplemental assay results should be interpreted in conjunction with the patient's clinical presentation, history and other laboratory results. If the results are inconsistent with clinical evidence, additional testing is suggested to confirm the result. 08/03/2022 4:56 PM EDT us Ana María Ferguson HISTORICAL/NON ORDERABLE LABS Fi nal Result [facility] [address] [place] [address], [place] * HPV E6/E7 RFLX PHILIPP 16 18/45 (07/17/2022 4:05 PM EDT) Pathologist [facility] HPV 16 RNA TNP [facility] HPV 18/45 RNA [facility]NP [facility] HPV E6 E7 ADD [facility]NP [facility] HPV mRNA E6/E7 rflx Not Detected Not Detected [facility] Comment: Methodology: Compliance Intern-Mediated Amplification This assay detects E6/E7 viral messenger RNA (mRNA) from 14 high-risk HPV types (16,18,31,33,35,39,45,51,52,56,58,59,66,68). Cervical sources are required for HPV testing. If a vaginal source from a patient who has had a total hysterectomy with removal of cervix was submitted, please contact the testing laboratory for alternative testing options. For additional information, please refer to http://education.[employer]/faq/AQE562a9 (This link if provided for information/ educational purposes only.) THIS TEST WAS PERFORMED AT: [facility] [address] [place] [address],[place] [address] CHRISTINE ALVARADO MD 07/17/2022 4:05 PM EDT Ana María Ferguson HISTORICAL/NON ORDERABLE LABS Fi nal Result [facility] [address] [place] [address], * (ABNORMAL) THINPREP PAP (03/13/2021 3:49 PM EDT) Pathologist [facility] Clinical Information: NONE GIVEN [facility] COMMENT SEE COMMENT [facility] [...] along with historic and current clinical information. Airfreight Operations Agent : SEE COMMENT [facility] Comment: GSG, CT(ASCP) CT screening location: [address] [address] General Categorization: EPITHELIAL CELL ABNORMALITY(A) [facility] Interpretation/R esult: Atypical Squamous Cells of Undetermined Significance (ASC-US)(A) [facility] LMP: NONE GIVEN [facility] PATHOLOGIST: SEE COMMENT [facility] Comment: Vira Rai M.D., Board Certified in Anatomic and Clinical Pathology (electronic signature) Consulting Pathologist [facility] [phone] Prev. BX: NONE GIVEN [facility] Prev. PAP: NONE GIVEN [facility] SOURCE: NONE GIVEN [facility] Statement Of Adequacy: SEE COMMENT [facility] Comment: Satisfactory for evaluation. Endocervical/transformation zone component absent. 03/13/2021 3:49 PM EDT Orly Henry MD LAB PATHOLOGY ORDERABLES Final Result [facility] [address] * Hm Colonoscopy (11/04/2018) Historical Provider HEALTH MAINTENANCE Final Result from Last 3 Months or Most Recently Relevant to Health Maintenance Insurance [facility] NAVIGATE DENTAL - HSN PARTIAL (MEDICAID) Care Teams Warehouse Insulation Worker Relationship Specialty Start Date End Date Orly Henry MD [address] [place] [address] PCP - General Family Medicine 11/10/20
--- OUTSIDE RECORDS SUMMARY | 2025-09-07 18:21 | XMS_ITS | Encounter Summary ---
Author Organization [employer] [facility] Address [address] [place] [address] 7t [place] [address] Care Team Providers Care Spray Crew Name Role Phone Orly Henry MD Primary Care Provider [phone] Encounter Details Date Type Department Care Team (Late Contact Info) Description 08/07/2023 Orders Only [facility] MEDICINE [address] [place], [place] [phone] Provider, Historical, Social History Tobacco Use Types [...] Description 10/05/2025 3:00 PM EST Office Visit [facility] ADULT DENTAL [address] [place], [place] [phone] Zeeshan, Mary [address] [place], [place] [phone] documented as of this encounter Procedures Procedure Name Priority Date/Time Associated Diagnosis Comments HM COLONOSCOPY Routine 11/04/2018 documented in this encounter Results * Hm Colonoscopy (11/04/2018) Historical Provider HEALTH MAINTENANCE Final Result documented in this encounter Visit Diagnoses Not on filedocumented in this encounter Care Teams Spray Crew Relationship Specialty Start Date End Date Orly Henry MD [address] [place] [address] PCP - General Family Medicine 11/10/20 documented as of this encounter
--- OUTSIDE RECORDS SUMMARY | 2025-09-07 18:21 | XMS_ITS | Encounter Summary ---
Author Organization [employer] Address [address] [place] [address] 7t [place] [address] Care Team Providers Care Supervisor Color Making Name Role Phone Orly Henry MD Primary Care Provider [phone] Encounter Details Date Type Department Care Team (Latest Contact Info) Description 03/27/2019 Abstract [facility] CONVERSIONS Dental, Provider, DDS Social [...] PM EST Office Visit [facility] ADULT DENTAL [address] [place] [address] Zeeshan, Mary [address] [place] [address] documented as of this encounter Visit Diagnoses Not on filedocumented in this encounter Care Teams Supervisor Color Making Relationship Specialty Start Date End Date Orly Henry MD [address] [place] [address] PCP - General Family Medicine 11/10/20 documented as of this encounter
--- OUTSIDE RECORDS SUMMARY | 2025-09-07 18:22 | XMS_ITS | Encounter Summary ---
Author Organization [employer] Address [address] [place] [address] [address] [place] [address] Care Team Providers Care Locum Tenens Name Role Phone Orly Henry MD Primary Care Provider [phone] Encounter Details Date Type Department Care Team ([facility] Contact Info) Description 09/04/[address] [facility] MEDICINE [address] [place] [phone] Orly Henry MD [address] [place], [place] [phone] Postmenopausal bleeding (Primary Dx); Endometrial thickening on [...] Description 10/05/2025 3:00 PM EST Office Visit [facility] ADULT DENTAL [address] [place], [place] [phone] Mary Byers [address] [place] [address] documented as of this encounter Procedures Procedure Name Priority Date/Time Associated Diagnosis Comments BI MAMMOGRAM DIAGNOSTIC TOMOSYNTHESIS BILATERAL Routine 09/19/2023 3:55 PM EDT documented in this encounter Results * BI Mammogram Diagnostic Tomosynthesis Bilateral (09/19/2023 3:55 PM EDT) Anatomical Region Laterality Modality Breast Bilateral Mammography 09/19/2023 3:55 PM EDT Narrative 09/19/2023 4:17 PM EDT [facility] [address] [place] [address] Mammography Report Signed Patient: Roro Lucas MR#: [id number] 235 : 1965 Acct:[id number] Age/Sex: 58 / F ADM Date: 09/19/23 Loc: HO.MAMMO Attending Dr: Orly Henry MD Ordering Physician: Orly Henry Results: 3.12MProb ably Benign Finding - 12 month F/U Suggested Date of Service: 09/19/23 Follow Up: 12 month diagnos tic follow up Procedure(s): MM tomosynthesis diagnostic BI Accession Number(s): [id number] cc: Orly Henry EXAMINATION: MM DIAGNOSTIC DIGITAL [...] in OV> 09/19/23 1613 DD/ 1555 TD/TT: Pharmacy Salesperson: Procedure Note Donotuseinterpreter, Image - 09/19/2023 [facility]'s [address] [place] [address] Mammography Report Signed Patient: Roro Lucas [facility]#: [id number] 235 : 1965Acct:[id number] Age/Sex: 58 / FADM Date: 09/19/23 Loc: MAMMO Attending Dr: Orly Henry MD Ordering Physician: Patricia Henryults: 3.12MProb ably Benign Finding - 12 month F/U Suggested Date of Service: 09/19/23Follow Up: 12 month diagnos tic follow up Procedure(s): MM tomosynthesis diagnostic BI Accession Number(s): [id number] cc: Orly Henry EXAMINATION: MM DIAGNOSTIC DIGITAL [...] by Jerome Kinsey MD in OV> 09/19/23 3192 DD/ 4135 TD/TT: Pharmacy Salesperson: us Orly Henry MD IMG BI PROCEDURES Final Result documented in this encounter Visit Diagnoses Diagnosis Postmenopausal bleeding- Primary Endometrial thickening on ultrasound documented in this encounter Additional Health Concerns Assessment Noted Time PHQ-9 Depression Total Score: 0 08/12/20 23 1:18 PM EDT documented as of this encounter Care Teams Locum Tenens Relationship Specialty Start Date End Date Orly Henry MD [address] [place] [address] PCP - General Family Medicine 11/10/20 documented as of this encounter
--- OUTSIDE RECORDS SUMMARY | 2025-09-07 18:22 | XMS_ITS | Encounter Summary ---
Author Organization [employer] Address [address] [facility] 7t [place] [address] Care Team Providers Care An Employee Sponsor Or Advocate And Name Role Phone Orly Henry MD Primary Care Provider [phone] Reason for Visit * Reason Onset Date Comments rs appt 09/17/2023 Encounter Details Date Type Department Care Team ([facility] st Contact Info) Description 09/17/2023 Telephone [facility] ADULT DENTAL [address] [place] [address] Hoang Haywood, ZENA [address] [place] [address] rs appt Social History Tobacco Use Types [...] Description 10/05/2025 3:00 PM EST Office Visit [facility] ADULT DENTAL [address] [place] [address] Zeeshan, Mary [address] [place] [address] documented as of this encounter Visit Diagnoses Not on filedocumented in this encounter Additional Health Concerns Assessment Noted Time PHQ-9 Depression Total Score: 0 08/12/20 23 1:18 PM EDT documented as of this encounter Care Teams An Employee Sponsor Or Advocate And Relationship Specialty Start Date End Date Orly Henry MD [address] [place] [address] PCP - General Family Medicine 11/10/20 documented as of this encounter
== END 2025-09-07 15:25 | disposition home or self-care (01) ==
LOC: HO.HVS 15:09
PROVIDERS: PCP General Practice; Visit Provider Surgery Vascular Surgery
DX: I83.11 Varicose veins of right lower extremity with inflammation (principal)
CPT/HCPCS: 99214

== ENCOUNTER 2025-10-05 15:43 | Outpatient (AMB) | payer OTHER, SELFPAY ==
[2025-10-05 15:44] VITALS: BP 102/68; BMI 24.8
--- NOTE | 2025-10-05 15:44 | A.OFFVIS_ITS ---
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 No complaints. Last Pap/HPV was negative in 07/23 Last Mammogram was BI-RADS 2 in 12/26 Last Colonoscopy was a years ago, the recommendation was to repeat in 10 years according to the patient [facility] Medical History Renal calculi Surgical History Hx of tubal ligation H/O abdominoplasty Family History Mother Fatty liver Sister High cholesterol Maternal Grandfather Stroke Brother Psoriasis Social History Household Members Other:: daughter Housing Other:: daughter Alcohol intake: never Patient Tobacco Use Status: Never used Tobacco Current occupational status: employed Current occupation: [employer]/rt handed Sexual orientation: Straight/Heterosexual Gender identity: Female Female Reproductive History Menstrual control method: permanent sterilization Total pregnancies: 3 Full term: 2 Number of Living Children: 2 Ab spontaneous: 1 Date of last pap smear: 07/18/22 Date of Mammogram: 12/18/24 Review of Systems Const All systems reviewed & are unremarkable except as noted in HPI and below Card Reports as per HPI Resp Reports as per HPI GI Reports as per HPI and Reports no additional complaints Reports as per HPI Physical Exam Vital Signs: Last Vital Signs BP 102/68 10/05/25 15:44 BMI result Body Mass Index 24.8 Const General: cooperative, healthy appearing and comfortable Chest Chest palpation & inspection: normal inspection of the chest and normal palpation of entire chest wall Breast/axilla inspection: normal inspection of the breasts and normal inspection of the axillae Breast/axilla palpation: normal palpation of the breasts, normal palpation of the axillae and no axillary lymphadenopathy Resp Effort & Inspection: normal respiratory effort Auscultation: clear to auscultation bilaterally Percussion: percussion normal Cardio Palpation: normal PMI Rate: regular rate Rhythm: regular rhythm Heart sounds: no murmurs and no rubs Peripheral pulses: Peripheral pulses 2+ throughout GI Inspection: Yes normal to inspection Palpation (GI): Soft to palpation, nontender, no guarding, not rigid and No hepatosplenomegaly present Percussion: Yes normal to percussion Auscultation: normal bowel sounds Rectal Exam - Female: deferred General: Yes bladder normal to palpation External Female Exam: No lesion Speculum Exam - Vagina: normal appearance of the vagina, normal palpation, normal vaginal discharge and not erythematous Speculum Exam - Cervix: normal appearance of the cervix and normal palpation Bimanual exam- vagina & uterus: normal bimanual exam, normal palpation, uterine size normal, bladder normal to palpation, consistency normal and normal palpation Bimanual Exam- Adnexa, other: normal adnexae, no masses and no tenderness Assessment & Plan Assessment & Plan (1) Well woman exam: Code(s): Z01.419 - Encounter for gynecological examination (general) (routine) without abnormal findings Category: Medical Plan: Co testing not indicated this year. Counseled the patient about the recommended dietary allowance of 1200 mg of Calcium & 600 IU of vitamin D. Mammogram ordered. The patient was instructed to perform monthly self-breast exams and schedule annual exam in a year. All questions answered and the patient verbalized understanding. Orders: Orders MM tomosynthesis screening BI Today Z12.31 - Encounter for screening mammogram for malignant neoplasm of breast Coding Level of Care Code Est Pt Prev Care 40-64y(15280) Diagnoses Well woman exam Z01.419
--- OUTSIDE RECORDS SUMMARY | 2025-10-05 18:18 | XMS_ITS | Encounter Summary ---
Author Organization [employer] Address [address] [place] [address] 7t [place] [address] Care Team Providers Care Film Library Clerk Name Role Phone Orly Henry MD Primary Care Provider [phone] Encounter Details Date Type Department Care Team (Latest Contact Info) Description 08/16/2022 Abstract [facility] Dental, Provider, DDS Social History [...] Care Team ( st Contact Info) Description 01/21/2026 2:15 PM EST Office Visit [facility] ADULT DENTAL [address] [place] [address] Zeeshan, Mary [address] [place] [address] documented as of this encounter Visit Diagnoses Not on filedocumented in this encounter Care Teams Film Library Clerk Relationship Specialty Start Date End Date Orly Henry MD [address] [place] [address] PCP - General Family Medicine 11/10/20 documented as of this encounter
--- OUTSIDE RECORDS SUMMARY | 2025-10-05 18:18 | XMS_ITS | Encounter Summary ---
Author Organization [employer] Address [address] [place] [address] 7t [place] [address] Care Team Providers Care Airport Duty Manager Name Role Phone Orly Henry MD Primary Care Provider [phone] Encounter Details Date Type Department Care Team (Latest Contact Info) Description 03/27/2019 Abstract [facility] CON[facility] Dental, Provider, DDS Social History [...] Description 01/21/2026 2:15 PM EST Office Visit [facility] ADULT DENTAL [address] [place] [address] Zeeshan, Mary [address] [place] [address] documented as of this encounter Visit Diagnoses Not on filedocumented in this encounter Care Teams Airport Duty Manager Relationship Specialty Start Date End Date Orly Henry MD [address] [place] [address] PCP - General Family Medicine 11/10/20 documented as of this encounter
--- OUTSIDE RECORDS SUMMARY | 2025-10-05 18:18 | XMS_ITS | Clinical Summary ---
Author Organization [employer] Address [address] [facility] 7t [place] [address] Care Team Providers Care Door Cutter Name Role Phone Orly Henry MD Primary Care Provider [phone] Allergies No known active allergies Medications PARoxetine (Paxil) 10 MG tabletIndications: Postmenopausal symptoms Take 1 tablet (10 mg) by mouth in the evening. 30 tablet 11 5 01/25/20 26 Active Glucosamine-Chondr oitin 250-200 MG capsuleIndications :Localized osteoarthritis of right knee Take 1 tablet by mouth Once per day. 90 capsule 3 5 Active calcium carbonate (Calcium 600) 600 MG tabletIndications: Localized osteoarthritis of right knee Take 1 tablet (600 mg) by mouth Once per day. 90 tablet 3 5 01/25/20 26 Active triamcinolone (Kenalog) 0.1 % creamIndications:R chary Apply topically if needed at bedtime for rash. 45 g 2 5 Active Active Problems Problem Noted Date Diagnosed Date [...] endometrial lining - has mammo scheduled Sep 20232021 NILM/HPV neg Postmenopausal symptoms 08/14/2023 Assessment & Plan (08/14/2023 9:30 AM EDT): Symptoms managed with Combipatch, now reporting breakthrough bleeding Hand pain 08/12/2023 Menopausal flushing 08/12/2023 Patellofemoral stress syndrome 08/12/2023 Encounters Date Type Department Care Team Description 08/27/2025 11:00 AM EDT Office Visit [facility] ADULT DENTAL [address] [place] [address] Hoang Haywood DMD 07/30/2025 Orders Only [facility] External Provider, [facility] from Last 3 Months Immunizations Immunization Administration [...] Care Team (Late st Contact Info) Description 01/21/2026 2:15 PM EST Office Visit [facility] ADULT DENTAL [address] [place] [address] Mary Byers [address] [place] [address] Health Maintenance Due Date Last Done Comments [...] 12/05/2021, 04/20/2021, 03/30/2021 Influenza Vaccine (#1) 2025 , 11/22/2021, 08/12/2020, Additional history exists SDOH Screening 09/21/2025 09/21/2024 DTaP/Tdap/Td Vaccines (2 - Td or Tdap) 10/14/2025 10/14/2015 Mammogram 12/18/2025 12/18/2024, 09/01, 12/25/2022, Additional history exists Dental X-Ray: Bitewings 01/23/2026 01/22/20, 07/14/2024, 08/23/2022 Depression Screening 01/25/2026 01/25/2025, 01/25/20 Tobacco Screening 08/27/2026 08/27/2025 Dental X-Ray: Full Mouth 07/15/2027 07/14/2024, 07/08/2019 Colonoscopy 11/04/2028 11/04/2018 Colorectal Cancer Screening 11/04/2028 [...] Recently Relevant to Health Maintenance Results * VASC US Lower Extremity Venous Duplex Bilateral (07/30/2025 1:38 PM EDT) 07/30/2025 1:38 PM EDT Narrative [facility] - 07/30/2025 2:54 PM EDT [place] [address] Ultrasound Report Signed Patient: Roro Lucas MR#: [id number] 235 : 1965 Acct:[id number] Age/Sex: 60 / F ADM Date: 07/30/25 Loc: .US Attending Dr: Bo Bee MD Ordering Physician: Bo Bee MD Date of Service: 07/30/25 Procedure(s): US venous duplex LE Accession Number(s): [id number] cc: Orly Henry; Bo Bee MD EXAMINATION: [...] Franc Renee MD 07/30/2025 02:52 PM EDT RP Dictated By: Franc Renee MD Signed By: <Electronically signed by Franc Renee MD in OV> 07/30/25 1452 DD/ 1338 TD/TT: 07/30/25 1411 Hydroelectric Production Manager: Procedure Note Donotuseinterpreter, Image - 07/30/2025 [place] [address] Ultrasound Report Signed Patient: Roro Lucas [facility]#: [id number] 235 : 1965Acct:[id number] Age/Sex: 60 / FADM Date: 07/30/25 Loc: .US Attending Dr: Bo Bee MD Ordering Physician: Bo Bee MD Date of Service: 07/30/25 Procedure(s): US venous duplex LE BI Accession Number(s): [id number] cc: Orly Henry; Bo Bee MD EXAMINATION: [...] 07/30/25 1452 DD/ 1338 TD/TT: 07/30/25 1411 Hydroelectric Production Manager: [facility] External Provider CV VASC ULAR PROCEDURES Final Result [facility] [address] [place] [address] * BI Mammogram Diagnostic Tomosynthesis Bilateral (12/18/2024 1:05 PM EST) Anatomical Region Laterality Modality Breast Bilateral Mammography 12/18/2024 1:05 PM EST Narrative 12/18/2024 1:47 PM EST [facility] [address] [place] [address] Mammography Report Signed Patient: Roro Lucas MR#: [id number] 235 : 1965 Acct:[id number] Age/Sex: 59 / F ADM Date: 12/18/24 Loc: HO.MAMMO Attending Dr: Orly Henry MD Ordering Physician: Orly Henry Results: 2Benign F indings Date of Service: 12/18/24 Follow Up: 1 Year From Orig inal Mammogram Procedure(s): MM tomosynthesis diagnostic BI Accession Number(s): [id number] cc: Orly Henry EXAMINATION: MM DIAGNOSTIC DIGITAL [...] 12/18/24 1344 DD/ 1305 TD/TT: 12/18/24 1322 Hydroelectric Production Manager: Procedure Note Donotuseinterpreter, Image - 12/18/2024 [facility] [address] [place] [address] Mammography Report Signed Patient: Roro Lucas [facility]#: [id number] 235 : 1965Acct:[id number] Age/Sex: 59 / FADM Date: 12/18/24 Loc: HO.MAMMO Attending Dr: Orly Henry MD Ordering Physician: Patricia Henryults: 2Benign F indings Date of Service: 12/18/24Follow Up: 1 Year From Orig inal Mammogram Procedure(s): MM tomosynthesis diagnostic BI Accession Number(s): [id number] cc: Orly Henry EXAMINATION: MM DIAGNOSTIC DIGITAL [...] De La Rosa DO 12/18/2024 01:44 PM [facility] Dictated By: Yumiko De La Rosa DO Signed By: <Electronically signed by Yumiko De La Rosa DO in OV> 12/18/24 1344 DD/ 1305 TD/TT: 12/18/24 1322 Hydroelectric Production Manager: us Orly Henry MD IMG BI PROCEDURES Edited Resul t - Final * Hepatitis C Antibody (08/03/2022 4:56 PM EDT) Hepatitis C Antibody Nonreactive Nonreactive [facility] Comment: Antibodies to HCV [...] of detection of this assay. The [employer] Front End Ui Developer HIV Ag/Ab Combo assay result and supplemental assay results should be interpreted in conjunction with the patient's clinical presentation, history and other laboratory results. If the results are inconsistent with clinical evidence, additional testing is suggested to confirm the result. 08/03/2022 4:56 PM EDT Ana María Ferguson HISTORICAL/NON ORDERABLE LABS Fi nal Result Performing Organization Address City/State/[facility] Co de Phone Number [facility] [address] * HPV E6/E7 RFLX PHILIPP 16 18/45 (07/17/2022 4:05 PM EDT) HPV 16 RNA [facility]NP [facility] HPV 18/45 RNA [facility] HPV E6 E7 ADD [facility]NP [facility] HPV mRNA E6/E7 rflx Not Detected Not Detected [facility] Comment: Methodology: Leadership Development Consultant-Mediated Amplification This assay detects E6/E7 viral messenger RNA (mRNA) from 14 high-risk HPV types (16,18,31,33,35,39,45,51,52,56,58,59,66,68). Cervical sources are required for HPV testing. If a vaginal source from a patient who has had a total hysterectomy with removal of cervix was submitted, please contact the testing laboratory for alternative testing options. For additional information, please refer to http://education.LiveStub/faq/STL720e9 (This link if provided for information/ educational purposes only.) THIS TEST WAS PERFORMED AT: [facility] [employer] [address] [address] CHRISTINE ALVARADO MD 07/17/2022 4:05 PM EDT us Ana María Ferguson HISTORICAL/NON ORDERABLE LABS Fi nal Result [facility] [address] [place] [id number], [place] * (ABNORMAL) THINPREP PAP (03/13/2021 3:49 PM EDT) Clinical Information: NONE GIVEN [facility] [...] along with historic and current clinical information. Extrusion Engineer : SEE COMMENT [facility] Comment: GSG, CT(ASCP) CT screening location: [address] [address] General Categorization: EPITHELIAL CELL ABNORMALITY(A) [facility] Interpretation/R esult: Atypical Squamous Cells of Undetermined Significance (ASC-US)(A) [facility] LMP: NONE GIVEN [facility] PATHOLOGIST: SEE COMMENT [facility] Comment: Vira Rai M.D., Board Certified in Anatomic and Clinical Pathology (electronic signature) Consulting Pathologist [facility] Pathology [phone] Prev. BX: NONE [facility]IVEN [facility] Prev. PAP: NONE [facility]IV[facility] SOURCE: NONE [facility]IV[facility] Statement Of Adequacy: SEE COMMENT [facility] Comment: Satisfactory for evaluation. Endocervical/transformation zone component absent. 03/13/2021 3:49 PM EDT us Orly Henry MD LAB PATHOLOGY ORDERABLES Final Result [facility] [address] [place] [address], * Hm Colonoscopy (11/04/2018) us Historical Provider HEALTH MAINTENANCE Final Result from Last 3 Months or Most Recently Relevant to Health Maintenance Insurance [facility] NAVIGATE DENTAL - HSN PARTIAL (MEDICAID) Care Teams Door Cutter Relationship Specialty Start Date End Date Orly Henry MD [address] [place] [address] PCP - General Family Medicine 11/10/20
--- OUTSIDE RECORDS SUMMARY | 2025-10-05 18:18 | XMS_ITS | Encounter Summary ---
Author Organization [employer] Address [address] [facility] 7t [place] [address] Care Team Providers Care Organ Pipe Maker Metal Name Role Phone Orly Henry MD Primary Care Provider [phone] Reason for Visit * Reason Onset Date Comments rs appt 09/17/2023 Encounter Details Date Type Department Care Team ([facility] st Contact Info) Description 09/17/2023 Telephone [facility] ADULT DENTAL [address] [place] [address] Hoang Haywood, ZENA [address] [place] [address] rs appt Social History Tobacco Use Types [...] Description 01/21/2026 2:15 PM EST Office Visit [facility] ADULT DENTAL [address] [place] [address] ZeeshanMary [address] [place] [address] documented as of this encounter Visit Diagnoses Not on filedocumented in this encounter Additional Health Concerns Assessment Noted Time PHQ-9 Depression Total Score: 0 08/12/20 23 1:18 PM EDT documented as of this encounter Care Teams Organ Pipe Maker Metal Relationship Specialty Start Date End Date Orly Henry MD [address] [place] [address] PCP - General Family Medicine 11/10/20 documented as of this encounter
--- OUTSIDE RECORDS SUMMARY | 2025-10-05 18:18 | XMS_ITS | Encounter Summary ---
Author Organization [employer] Address [address] [place] [address] 7t [place] [address] Care Team Providers Care Microsoft Access Developer Name Role Phone Orly Henry MD Primary Care Provider [phone] Encounter Details Date Type Department Care Team (Latest Contact Info) Description 08/14/2021 Abstract [facility] CONVERSIONS Dental, Provider, DDS Social [...] Description 01/21/2026 2:15 PM EST Office Visit [facility] ADULT DENTAL [address] [place] [address] Zeeshan, Mary [address] [place] [address] documented as of this encounter Visit Diagnoses Not on filedocumented in this encounter Care Teams Microsoft Access Developer Relationship Specialty Start Date End Date Orly Henry MD [address] [place] [address] PCP - General Family Medicine 11/10/20 documented as of this encounter
--- OUTSIDE RECORDS SUMMARY | 2025-10-05 18:18 | XMS_ITS | Encounter Summary ---
Author Organization [employer] [facility] Address [address] [place] [address] 7t [place] [address] Care Team Providers Care Commercial Lending Relationship Manager Name Role Phone Orly Henry MD Primary Care Provider [phone] Encounter Details Date Type Department Care Team (Late Contact Info) Description 08/07/2023 Orders Only [facility] MEDICINE [address] [place], [place] [phone] Provider, Historical, Social History Tobacco Use Types [...] Department Care Team (Late Contact Info) Description 01/21/2026 2:15 PM EST Office Visit [facility] ADULT DENTAL [address] [place], [place] [phone] Zeeshan, Mary [address] [place], [place] [phone] documented as of this encounter Procedures Procedure Name Priority Date/Time Associated Diagnosis Comments HM COLONOSCOPY Routine 11/04/2018 documented in this encounter Results * Hm Colonoscopy (11/04/2018) Historical Provider HEALTH MAINTENANCE Final Result documented in this encounter Visit Diagnoses Not on filedocumented in this encounter Care Teams Commercial Lending Relationship Manager Relationship Specialty Start Date End Date Orly Henry MD [address] [place] [address] PCP - General Family Medicine 11/10/20 documented as of this encounter
--- OUTSIDE RECORDS SUMMARY | 2025-10-05 18:18 | XMS_ITS | Encounter Summary ---
Author Organization [email or web address] Address [address] [place] [address] [address] [place] [address] Care Team Providers Care Hub Cutter Apprentice Name Role Phone Orly Henry MD Primary Care Provider [phone] Encounter Details Date Type Department Care Team ([facility] Contact Info) Description 09/04/2023 Orders Only [facility] [address] [place] [phone] Orly Henry MD [address] [place], [place] [phone] Postmenopausal bleeding (Primary Dx); Endometrial thickening on [...] Description 01/21/2026 2:15 PM EST Office Visit [facility] ADULT DENTAL [address] [place], [place] [phone] Mary Byers [address] [place] [address] documented as of this encounter Procedures Procedure Name Priority Date/Time Associated Diagnosis Comments BI MAMMOGRAM DIAGNOSTIC TOMOSYNTHESIS BILATERAL Routine 09/19/2023 3:55 PM EDT documented in this encounter Results * BI Mammogram Diagnostic Tomosynthesis Bilateral (09/19/2023 3:55 PM EDT) Anatomical Region Laterality Modality Breast Bilateral Mammography 09/19/2023 3:55 PM EDT Narrative 09/19/2023 4:17 PM EDT [facility] [address] [place] [address] Mammography Report Signed Patient: Roro Lucas MR#: [id number] 235 : 1965 Acct:[id number] Age/Sex: 58 / F ADM Date: 09/19/23 Loc: HO.MAMMO Attending Dr: Orly Henry MD Ordering Physician: Orly Henry Results: 3.12MProb ably Benign Finding - 12 month F/U Suggested Date of Service: 09/19/23 Follow Up: 12 month diagnos tic follow up Procedure(s): MM tomosynthesis diagnostic BI Accession Number(s): [id number] cc: Orly Henry EXAMINATION: MM DIAGNOSTIC DIGITAL [...] in OV> 09/19/23 1613 DD/ 1555 TD/TT: Biomedical Engineering Professor: Procedure Note Donotuseinterpreter, Image - 09/19/2023 [facility] [address] [place] [address] Mammography Report Signed Patient: Roro Lucas [facility]#: [id number] 235 : 1965Acct:[id number] Age/Sex: 58 / FADM Date: 09/19/23 Loc: MAMMO Attending Dr: Orly Henry MD Ordering Physician: Patricia Henryults: 3.12MProb ably Benign Finding - 12 month F/U Suggested Date of Service: 09/19/23Follow Up: 12 month diagnos tic follow up Procedure(s): MM tomosynthesis diagnostic BI Accession Number(s): [id number] cc: Orly Henry EXAMINATION: MM DIAGNOSTIC DIGITAL [...] by Jerome Kinsey MD in OV> 09/19/23 9720 DD/ 0565 TD/TT: Biomedical Engineering Professor: us Orly Henry MD IMG BI PROCEDURES Final Result documented in this encounter Visit Diagnoses Diagnosis Postmenopausal bleeding- Primary Endometrial thickening on ultrasound documented in this encounter Additional Health Concerns Assessment Noted Time PHQ-9 Depression Total Score: 0 08/12/20 23 1:18 PM EDT documented as of this encounter Care Teams Hub Cutter Apprentice Relationship Specialty Start Date End Date Orly Henry MD [address] [place] [address] PCP - General Family Medicine 11/10/20 documented as of this encounter
== END 2025-10-05 16:09 | disposition home or self-care (01) ==
PROVIDERS: PCP General Practice; Visit Provider Obstetrics & Gynecology
DX: Z01.419 Encounter for gynecological examination (general) (routine) without abnormal findings (principal)
CPT/HCPCS: 99396; 99459